=== PATIENT | male | born 1955 | race Caucasian/White ===

== ENCOUNTER → 2016-09-24 | Outpatient (CLI) | payer OTHER ==
--- NOTE | 2016-09-24 19:06 | DX ---
3 views left fifth digit Reason for examination: Post reduction follow-up; no prior studies are available for comparison. Findings: The bone alignment is anatomic. No fracture is seen. Soft tissues are unremarkable. Inciden tally, there is a focal sclerotic area at the distal end of the proximal phalanx of the left fourth d igit which is probably a benign bone island. Impression: Anatomic alignment following reduction with no fracture seen.
== END ==
LOC: BMCIMAGING 18:40
PROVIDERS: ATTEND Family Medicine
DX: S69.92XA Unspecified injury of left wrist, hand and finger(s), initial encounter (principal); W00.0XXA Fall on same level due to ice and snow, initial encounter

== ENCOUNTER 2018-02-26 07:15 | Inpatient (IN) | payer OTHER ==
[2018-03-01] MEDS ORDERED: ROPIVACAINE 0.2% 80 MG, EPINEPHrine 0.2 MG, morphINE 10 MG in SYRINGE 0 ML IU ONE (06:00)
[2018-03-01] MEDS ORDERED: LIDOCAINE 1% 2 ML INJ ONE (06:03)
[2018-03-01] MEDS ORDERED: DEXAMETHASONE 4 MG/ML VIAL IVP ONE (06:12)
[2018-03-01] MEDS ORDERED: ceFAZolin 2 GM/DEXTROSE 100 ML IV ONE (06:12)
[2018-03-01] MEDS ORDERED: FAMOTIDINE 20 MG TAB PO ONE (06:12)
[2018-03-01] MEDS ORDERED: ACETAMINOPHEN 325 MG TAB PO ONE (06:12)
[2018-03-01] MEDS ORDERED: LIDOCAINE 1% 2 ML INJ ID PRN (06:13)
[2018-03-01] MEDS ORDERED: LR 1,000 ML IV ONE (06:31)
[2018-03-01] MEDS ORDERED: CALCIUM CHLORIDE 1 GM/10 ML INJ ONE (06:33)
[2018-03-01] MEDS ORDERED: ceFAZolin 1 GM/5 ML SYR ONE (06:33)
[2018-03-01] MEDS ORDERED: THROMBIN (BOVINE) 5,000 UNIT VIAL TP ONE (06:33)
[2018-03-01] MEDS ORDERED: MIDAZOLAM 2 MG/2 ML VIAL IVP ONE (06:43)
--- NOTE | 2018-03-01 06:56 | PDANEPAE ---
ANE History of Present Illness R TKA ANE Past Medical History - Cardiovascular History Hx Hypertension: No Hx Arrhythmias: No Hx Chest Pain: No Hx Coronary Artery / Peripheral Vascular Disease: No Hx CHF / Valvular Disease: No Hx Palpitations: No Cardiovascular History Comment: PE 11/2015 - Pulmonary History Hx COPD: No Hx Asthma/Reactive Airway Disease: No Hx Recent Upper Respiratory Infection: No Hx Oxygen in Use at Home: No Hx Sleep Apnea: No Sleep Apnea Screening Result - Last Documented: Negative - Neurologic History Hx Cerebrovascular Accident: No Hx Seizures: No Hx Dementia: No - Endocrine History Hx Diabetes: No - Renal History Hx Renal Disorders: No - Liver History Hx Hepatic Disorders: No - Neurological & Psychiatric Hx Hx Neurological and Psychiatric Disorders: Yes Neurological / Psychiatric History Comment: BIPOLAR. PREV SUICIDE ATTEMPT - Cancer History Hx Cancer: No - Congenital Disorder History Hx Congenital Disorders: No - GI History Hx Gastrointestinal Disorders: No Gastrointestinal History Comment: CONSTIPATION - Other Health History Other Health History: LE DVT 2015. RT FOOT NEUROPATHY/NUMBNESS. DDD CERVICAL/ LUMBAR. OSTEOARTHRITIS - Chronic Pain History Chronic Pain: Yes (DDD,RT KNEE) - Surgical History Prior Surgeries: NONE ANE Review of Systems Review of systems is: negative Review of Systems: - Exercise capacity METS (RN): 4 METS ANE Patient History - Allergies Allergies/Adverse Reactions: bee stings Allergy (Mild, Uncoded 01/25/16 15:57) localized reaction - Home Medications Home medications: home medication list seen and reviewed Home Medications: Ascorbic Acid [Vitamin C 500 mg (*)] 500 mg PO DAILY@07/28/16 [Last Taken 10/11] Atorvastatin Calcium [Lipitor 40 mg (*)] 40 mg PO HS 07/28/16 [Last Taken ] Gabapentin [Neurontin 300 MG (*)] 900 mg PO BID@07/28/16 [Last Taken 03/01] Herbals/Supplements -Info Only 1 ea PO DAILY 07/28/16 [Last Taken Unknown] Magnesium Oxide [Magnesium Oxide 400 mg (*)] 400 mg PO HS 07/28/16 [Last Taken 02/22/18] Multivitamins [Multivitamin (*)] 1 each PO DAILY 07/28/16 [Last Taken 02/22/18] [place]-3 Fatty Acids [Fish Oil 1000 mg (*)] 3,000 mg PO BID@07/28/16 [Last Taken 02/22/18] lamoTRIgine [LamICTAL 100 MG (*)] 300 mg PO DAILY 07/28/16 [Last Taken 03/01/18] Escitalopram Oxalate [Lexapro] 15 mg PO Q2D 02/11/18 [Last Taken 03/01/18] Escitalopram Oxalate [Lexapro] 20 mg PO Q2D 02/11/18 [Last Taken Unknown] Gabapentin [Neurontin 300 MG (*)] 600 mg PO DAILY@02/11/18 [Last Taken ] [place] Carbonate [[place] Carbonate Tab 300 mg (*)] 1,200 mg PO HS 02/11/18 [ Last Taken 03/01/18] [place]-3 Fatty Acids [Fish Oil 1000 mg (*)] 2,000 mg PO DAILY@02/11/18 [Last Taken 02/22/18] QUEtiapine FUMARATE [Seroquel 25 mg (*)] 25 mg PO DAILY PRN 02/11/18 [Last Taken 02/28/18] QUEtiapine FUMARATE [Seroquel 300mg (*)] 300 mg PO HS 02/11/18 [Last Taken 02/28] Miralax 17 gm (*) DAILY 02/18/18 [Last Taken 02/25/18] - NPO status NPO Status: no food or drink >8 hours NPO Since - Liquids (Date): 02/28/18 NPO Since - Liquids (Time): 20:30 NPO Since - Solids (Date): 02/28/18 NPO Since - Solids (Time): 20:30 - Anes Hx Anes Hx: no prior problems - Smoking Hx Smoking Status: Former smoker - Family Anes Hx Family Anes Hx: none Family Hx Anesthesia Complications: NEG ANE Labs/Vital Signs - Vital Signs Vital Signs: reviewed preoperatively; see RN documention for details Blood Pressure: 102/75 Heart Rate: 65 Respiratory Rate: 20 O2 Sat (%): 94 Height: 177.8 cm Weight: 63.503 kg ANE Physical Exam - Airway Neck exam: FROM Mallampati Score: Class 2 Mouth exam: normal dental/mouth exam - Pulmonary Pulmonary: no respiratory distress - Cardiovascular Cardiovascular: regular rate and rhythym - ASA Status ASA Status: II ANE Anesthesia Plan Anesthesia Plan: spinal
--- NOTE | 2018-03-01 07:05 | PDHPUP ---
History & Physical Update H&P update statement: This history and physical update is based on an assessment of the patient which was completed after admission or registration (within 24 hours), but prior to the surgery/procedure. H&P update: H&P reviewed & patient examined, no change in patient's condition since H&P completed
[2018-03-01] MEDS ORDERED: LIDOCAINE 2% 100 MG/5 ML SYR ONE (07:15)
[2018-03-01] MEDS ORDERED: PROPOFOL/EMULSION 500 MG/50 ML BOTTLE IV ONE (07:15)
[2018-03-01] MEDS ORDERED: fentaNYL 100 MCG/2 ML INJ ONE ×2 (08:04→10:34)
[2018-03-01] MEDS ORDERED: HYDROmorphONE/DILAUDID 2 MG/ML INJ ONE (08:04)
[2018-03-01] MEDS ORDERED: PHENYLEPHRINE HCL 100 MCG/ML SYR ONE (08:18)
[2018-03-01] MEDS ORDERED: ACETAMINOPHEN 500 MG TAB PO PRN (08:29)
[2018-03-01] MEDS ORDERED: MEPERIDINE 25 MG/0.5 ML AMP IVP PRN (08:29)
[2018-03-01] MEDS ORDERED: oxyCODONE IR 5 MG TAB PO PRN (08:29)
[2018-03-01] MEDS ORDERED: NALOXONE HCL 0.4 MG/ML INJ IVP PRN (08:29)
[2018-03-01] MEDS ORDERED: PROMETHAZINE HCL 25 MG/ML INJ IVP PRN ×2 (08:29→10:26)
[2018-03-01] MEDS ORDERED: HYDROCODONE/APAP 5/325 TAB PO PRN (08:29)
[2018-03-01] MEDS ORDERED: DEXAMETHASONE 4 MG/ML VIAL IVP PRN (08:29)
[2018-03-01] MEDS ORDERED: HYDROmorphONE/DILAUDID 1 MG/ML INJ IVP PRN (08:29)
--- NOTE | 2018-03-01 08:32 | POSTANESTH ---
Post Anesthetic Evaluation Cardiovascular Status: Normal, Stable, Similar to Pre-Op Cond Respiratory Status: Normal, Stable, Similar to Pre-op Cond. Level of Consciousness/Mental Status: Can Participate in Eval, Moderately Sleepy Pain Control: Adequate, Prn Tx Ordered Nausea/Vomiting Control: Adequate, Prn Tx Ordered Complications Possibly Related to Anesthesia: None Noted
[2018-03-01] MEDS ORDERED: DEXAMETHASONE 4 MG/ML VIAL ONE (10:11)
[2018-03-01] MEDS ORDERED: BISACODYL 10 MG SUPP PR PRN (10:26)
[2018-03-01] MEDS ORDERED: diphenhydrAMINE 25 MG CAP PO PRN (10:26)
[2018-03-01] MEDS ORDERED: DIPHENOXYLATE/ATROPINE LOMOTIL 1 TAB PO PRN (10:26)
[2018-03-01] MEDS ORDERED: PROMETHAZINE HCL 25 MG SUPPR PR PRN (10:26)
[2018-03-01] MEDS ORDERED: MAGNESIUM HYDROXIDE 30 ML UDCUP PO PRN (10:26)
[2018-03-01] MEDS ORDERED: LACTULOSE 20 GM/30 ML UDCUP PO PRN (10:26)
[2018-03-01] MEDS ORDERED: LR 1,000 ML IV SCH (10:30)
[2018-03-01] MEDS ORDERED: QUEtiapine FUMARATE 25 MG TAB PO PRN (10:32)
[2018-03-01] MEDS: fentaNYL 100 MCG/2 ML INJ IVP PRN ×3 (10:37→11:05)
--- NOTE | 2018-03-01 10:38 | POSTOPPROG ---
Post Op Note Date of Operation: 03/01/18 Surgeon: Enid Belcher Md Pediatric Allergist: Concepcion Del Cid PA-C Anesthesiologist: Dr. Acharya Anesthesia: GET(General Endotracheal), Spinal Pre-op Diagnosis: right knee osteoarthritis Post-op Diagnosis: right knee osteoarthritis Indication: right knee pain Procedure: right TKA Inf/Abcess present in the surg proc area at time of surgery?: No EBL: Minimal Complications: none
--- NOTE | 2018-03-01 10:40 | SOAPPROG ---
SOAP Progress Note Assessment/Plan: Assessment/Plan: 63y/o male s/p right TKA - stable and doing well - patient with bipolar disorder and history of suicide attempt; lives alone; will require inpatient status and rehab to ensure post-operative safety - orders as written - xrays pending - PT/OT - Xarelto start POD#2; TEDs/SCDs - call with any issues or concerns 03/01/18 10:38 Subjective: Mild pain Objective: Vital Signs Temp Pulse Resp BP Pulse Ox 36.0 C 65 20 102/75 94 03/01/18 10:07 03/01/18 06:58 03/01/18 06:58 03/01/18 06:58 03/01/18 06:58 NAD, waking from anesthesia EOMi, face symmetric no distress incision clean, dressed ICD10 Worksheet Patient Problems: Problems Problem Status Onset Altered mental status Acute Attempted suicide Acute Overdose Acute Suicidal ideation Acute
--- NOTE | 2018-03-01 10:53 | GOP ---
[f rep st] OPERATIVE REPORT DATE OF OPERATION: 03/01/2018 SURGEON: Enid Belcher MD ENDOCRINOLOGY PHYSICIAN: CARRIE Rucker. ANESTHESIA: Spinal with sedation. PREOPERATIVE DIAGNOSIS: Severe osteoarthritis, right knee. POSTOPERATIVE DIAGNOSIS: Severe osteoarthritis, right knee. PROCEDURE PERFORMED: Right total knee arthroplasty. FINDINGS: Preoperative x-rays of the patient's right knee demonstrated severe osteoarthritis most pr onounced in the medial compartment. The patient did have tricompartmental involvement. At the time of surgery this finding was confirmed. There was marked osteophyte formation around the periphery of the joint and loss of the articular cartilage. A cemented Alvarez [employer] Nephew Journey II total knee ar throplasty were performed. A size 5 right femoral component was cemented into place and a size 5 tib ial base plate was also cemented into place. A 10 mm thick cross-linked polyethylene insert was plac ed in the metal backing of the tibia. The knee was taken through range of motion and achieved full e xtension and 135 degrees of flexion on the table. The patient was stable to varus and valgus stressi ng both in extension and flexion. A 35 mm round patellar button was also cemented on the patella and tracked well throughout the range of motion. ESTIMATED BLOOD LOSS: Less than 100 cc. DESCRIPTION OF PROCEDURE: The patient was taken to the operating room, placed in supine position on the operating table. Following placement of a spinal block and induction of adequate sedation the kn ee and leg were prepped and draped in the usual sterile manner. The patient received 2 g of IV Ancef . The leg was elevated and exsanguinated and the tourniquet inflated to 275 mmHg. The [facility] leg h older was used throughout the procedure for positioning. A midline incision was made extending from 2 fingerbreadths above the superior pole of the patella distally to the tibial tubercle. Incision wa s carried down through the subcutaneous tissue to the retinaculum of the knee. A medial parapatellar arthrotomy was then performed and the patella was everted laterally. The thickness of the patella w as measured and then a 9 mm cut was taken from the posterior surface of the patella. A protector marcy te was placed on the cut surface and the patella was placed in the lateral gutter. The knee was flex ed up and the distal femoral drill was utilized to open up the medullary canal of the femur. Intrame dullary referencing was utilized for the distal femoral cut. The distal femoral cutting block was po sitioned and pinned and then a +2 cut was taken from the distal femur. The femoral cutting block was removed and then the 9 mm thick lollipop was used to giovany the tibia for later referencing on the tib ial cut. The knee was flexed up and the femur was sized. A size 5 femoral component was felt to be the best fit so the size 5 cutting block was placed on the distal femur and pinned. The anterior pos terior and chamfer cuts were made. The notch was then cleared with the reamer followed by the box os teotome. Our attention was then turned to the tibia. Appropriate soft tissue releases were performe d to pull the tibia anteriorly and then again intramedullary referencing was utilized for the tibial cut. A drill hole was placed in the midline of the tibial plateaus and then the intramedullary guide was inserted and positioned and pinned. The tibial cut was made. The knee was brought into extensi on and the lollipop was inserted and the patient achieved full extension with a 9 mm thick lollipop i n place. The lamina chartered financial analyst was used to remove the meniscus and to release the posterior capsule. The knee was then flexed up and the tibia was sized. A size 5 tibial component was pinned into place and then the femoral component was placed on the distal femur and the 9, 10 and 11 mm thick polyethy lenes were trialed. The best fit was with a 10 mm trial. The patella was then prepared as well. Dr ill holes were placed in the posterior surface of the patella. The keel punch was passed and then al l the trial components were removed and the bony surfaces were thoroughly irrigated and dried. The c ement was mixed. The components were opened and implanted. All excess cement was removed from aroun d the edges of the components using a [place] elevator. The knee was brought into extension with the 1 [address]. It was held while the cement hardened. Once the cement was hard, the knee was flexed back up and the trial polyethylene was removed and the polyethylene insert was op ened and inserted. Prior to inserting the polyethylene the posterior capsule was injected with 20 cc of joint cocktail. The remaining 20 cc was injected in the extensor mechanism. Once the polyethyle ne was then placed the knee was taken through a range of motion and motion and stability were excelle nt. The wound was irrigated out and the retinaculum of the knee was closed using #2 FiberWire in a f [id number] fashion. The subcutaneous tissues were closed using 2-0 Vicryl and the skin was close d using steve. Platelet gel was used in the deep and superficial portions of the wound to enhance wound healing. The patient tolerated the procedure well. There were no complications. Estimated bl ood loss minimal. Final sponge, needle counts were correct. The patient was transported to the [facility] very room in good condition. /[id number]/MODL
--- NOTE | 2018-03-01 12:32 | PDMN ---
Medical Necessity Medical necessity: Pt meets IP criteria per PA; est los >2 mn s/p R TKA; pt unsafe to dc home alone-hx bipolar disorder, anxiety & depression w/suicide attempt; admit for safety, further monitoring, therapies & CM consult for dc planning; per progress note & order 03/01/18
--- NOTE | 2018-03-01 12:43 | ASMTCMCOM ---
CM Note CM Note Notes: Patient is POD #0 R TKA. His surgeon would like him to go to SNF rehab. Patient lives alone in an apartment managed by [facility]. It's a ground floor apartment. Prior to surgery, patient visited [facility] and spoke with [facility]. He's amenable to going to either. Referals have been sent, and Case Management will follow. Date Signed: 03/01/2018 12:43 PM Electronically Signed By:Leticia Feliz RN
[2018-03-01] MEDS: ceFAZolin 2 GM/DEXTROSE 100 ML IV SCH ×2 (15:00→23:13)
[2018-03-01] MEDS: ACETAMINOPHEN 325 MG TAB PO SCH ×3 (15:39→23:15)
[2018-03-01] MEDS: ASCORBIC ACID 500 MG TAB PO SCH (15:41)
[2018-03-01] MEDS: GABAPENTIN 300 MG CAP PO SCH ×2 (15:42→20:38)
[2018-03-01] MEDS: CYCLOBENZAPRINE 10 MG TAB PO PRN (15:50)
[2018-03-01] MEDS ORDERED: NS 500 ML IV ONE (16:00)
--- NOTE | 2018-03-01 16:10 | ASMTLACE ---
SANNA Acuity / Level of Answers: Yes Care: Did the patient have an inpatient admission? Comorbidities - select Answers: Opioid dependence all that apply / Chronic pain Other Notes: Hx of PE # of Emergency department Answers: 0 visits in the last 6 months Social determinants Answers: Mental health diagnosis (anxiety, depression, pers onality disorders, etc.) Score: 11 Date Signed: 03/01/2018 04:10 PM Electronically Signed By:Deysi Wise
[2018-03-01] MEDS: oxyCODONE IR 5 MG TAB PO PRN ×2 (18:39→23:18)
[2018-03-01] MEDS: ATORVASTATIN CALCIUM 40 MG TAB PO SCH (20:38)
[2018-03-01] MEDS: MAGNESIUM OXIDE 400 MG TAB PO SCH (20:38)
[2018-03-01] MEDS: LITHIUM CARBONATE 300 MG TAB PO SCH (20:39)
[2018-03-01] MEDS: SENNOSIDES/DOCUSATE SODIUM TAB PO SCH (20:39)
[2018-03-01] MEDS: QUEtiapine FUMARATE 300 MG TAB PO SCH (23:15)
[2018-03-02] MEDS: CYCLOBENZAPRINE 10 MG TAB PO PRN ×2 (01:58→16:33)
[2018-03-02] MEDS: ACETAMINOPHEN 325 MG TAB PO SCH ×4 (04:59→22:56)
[2018-03-02] MEDS: oxyCODONE IR 5 MG TAB PO PRN ×2 (05:00→08:01)
[2018-03-02] MEDS: lamoTRIgine 100 MG TAB PO SCH (08:10)
[2018-03-02] MEDS: SENNOSIDES/DOCUSATE SODIUM TAB PO SCH ×2 (08:10→20:56)
[2018-03-02] MEDS: FERROUS SULFATE 140 MG TAB.ER PO SCH (08:11)
[2018-03-02] MEDS: ESCITALOPRAM OXALATE 10 MG TAB PO SCH (08:11)
[2018-03-02] MEDS: GABAPENTIN 300 MG CAP PO SCH ×3 (08:11→20:55)
[2018-03-02] MEDS: MULTIVITAMINS 1 EACH TAB PO SCH (08:12)
[2018-03-02] MEDS ORDERED: POLYETHYLENE GLYCOL 3350 17 GM PKT PO SCH (09:00)
[2018-03-02] MEDS ORDERED: oxyCODONE IR 5 MG TAB PO PRN (11:43)
[2018-03-02] MEDS: ASCORBIC ACID 500 MG TAB PO SCH (11:55)
[2018-03-02] MEDS ORDERED: NS 500 ML IV ONE (12:30)
--- NOTE | 2018-03-02 13:55 | SOAPPROG ---
SOAP Progress Note Assessment/Plan: Assessment/Plan: 63y/o male s/p right TKA, POD#1 - having some issues with pain control. currently 6/10. unable to take NSAIDs given patient's need for [place] and interaction with drug metabolism/potential for [place] toxicity. Oxycodone approved by patient's Psychiatrist. Reached out to Psychiatrist earlier today to discuss changing to Dilaudid. No interaction seen with Dilaudid + [place]. Discussed with patient who reports Psychiatrist did not seem particularly concerned about him taking narcotics. Will trial 2- 4mg of Dilaudid to see if this helps with pain control. Patient on continuous pulse ox - hypotension, 500NS bolus. suspect multifactorial including narcotic related. Continue to monitor closely. - patient with bipolar disorder and history of suicide attempt; lives alone; will require inpatient status and rehab to ensure post-operative safety - xrays show stable hardware - PT/OT - Xarelto starts POD#2; TEDs/SCDs - continue inpatient care - call with any issues or concerns 03/02/18 13:51 Subjective: Pain currently /. Eating drinking. No BM yet. Doesn't feel Oxycodone is helping with pain at all. Objective: Vital Signs Temp Pulse Resp BP Pulse Ox 36.9 C 98 18 105/69 90 L 03/02/18 11:43 03/02/18 11:43 03/02/18 11:43 03/02/18 12:05 03/02/18 11:43 Laboratory Results 03/02/18 04:35 03/01/18 03/02/18 03/03/18 05:59 05:59 05:59 Intake Total 0257 Output Total 4217 1579 Balance 1062 -1575 NAD, well appearing, no distress EOMi, face symmetric right knee extension 5 flexion 80 incision CDI, trace bleeding at superior portion of incision dressing changed ICD10 Worksheet Patient Problems: Problems Problem Status Onset Altered mental status Acute Attempted suicide Acute Overdose Acute Suicidal ideation Acute
[2018-03-02] MEDS: HYDROmorphONE/DILAUDID 2 MG TAB PO PRN ×2 (14:17→21:12)
[2018-03-02] MEDS: ATORVASTATIN CALCIUM 40 MG TAB PO SCH (20:55)
[2018-03-02] MEDS: LITHIUM CARBONATE 300 MG TAB PO SCH (20:56)
[2018-03-02] MEDS: MAGNESIUM OXIDE 400 MG TAB PO SCH (20:56)
[2018-03-02] MEDS: POLYETHYLENE GLYCOL 3350 17 GM PKT PO SCH (20:57)
[2018-03-02] MEDS: QUEtiapine FUMARATE 300 MG TAB PO SCH (22:57)
[2018-03-03] MEDS: ACETAMINOPHEN 325 MG TAB PO SCH ×3 (05:07→18:27)
[2018-03-03] MEDS ORDERED: ESCITALOPRAM OXALATE 10 MG TAB PO SCH (09:00)
[2018-03-03] MEDS: FERROUS SULFATE 140 MG TAB.ER PO SCH (09:55)
[2018-03-03] MEDS: lamoTRIgine 100 MG TAB PO SCH (10:22)
[2018-03-03] MEDS: MULTIVITAMINS 1 EACH TAB PO SCH (10:22)
[2018-03-03] MEDS: GABAPENTIN 300 MG CAP PO SCH ×3 (10:23→20:35)
[2018-03-03] MEDS: RIVAROXABAN 10 MG TAB PO SCH (10:23)
[2018-03-03] MEDS: SENNOSIDES/DOCUSATE SODIUM TAB PO SCH ×2 (10:23→20:34)
[2018-03-03] MEDS: POLYETHYLENE GLYCOL 3350 17 GM PKT PO SCH ×2 (10:24→20:34)
[2018-03-03] MEDS: HYDROmorphONE/DILAUDID 2 MG TAB PO PRN ×2 (10:28→18:35)
[2018-03-03] MEDS: ASCORBIC ACID 500 MG TAB PO SCH (12:37)
--- NOTE | 2018-03-03 15:02 | ASMTCMCOM ---
CM Note CM Note Notes: Pt accepted at both [facility] and [facility], pt chooses [facility]. D/c plan of care: [facility] when medically stable. Date Signed: 03/03/2018 03:01 PM Electronically Signed By:MARTY Byrne
--- NOTE | 2018-03-03 15:24 | SOAPPROG ---
SOAP Progress Note Assessment/Plan: Assessment/Plan: 63y/o male s/p right TKA, POD#2 - having some issues with pain control. unable to take NSAIDs given patient's need for [place] and interaction with drug metabolism/potential for [place] toxicity. Continue with Dilaudid prn. Continuous pulse ox - monitor for any further hypotension. - patient with bipolar disorder and history of suicide attempt; lives alone; will require inpatient status and rehab to ensure post-operative safety - xrays show stable hardware - PT/OT - Xarelto starts today; TEDs/SCDs - continue inpatient care - call with any issues or concerns Patient seen and examined at approximately 8am by Dr. Belcher solely. Document per her exam and assessment 03/03/18 15:23 03/03/18 15:24 Subjective: Improving overall Objective: Vital Signs Temp Pulse Resp BP Pulse Ox 37.2 C 99 16 121/75 H 97 03/03/18 11:54 03/03/18 11:54 03/03/18 11:54 03/03/18 11:54 03/03/18 11:54 Laboratory Results 03/03/18 04:40 03/02/18 03/03/18 03/04/18 05:59 05:59 05:59 Intake Total 3137 1100 1500 Output Total 4945 3975 Balance 1062 -2875 1500 NAD, well appearing, no distress EOMi, face symmetric incision clean, dressed neurovascularly grossly intact ICD10 Worksheet Patient Problems: Problems Problem Status Onset Altered mental status Acute Attempted suicide Acute Overdose Acute Suicidal ideation Acute
[2018-03-03] MEDS: ATORVASTATIN CALCIUM 40 MG TAB PO SCH (20:34)
[2018-03-03] MEDS: MAGNESIUM OXIDE 400 MG TAB PO SCH (20:36)
[2018-03-03] MEDS: LITHIUM CARBONATE 300 MG TAB PO SCH (20:36)
[2018-03-03] MEDS: QUEtiapine FUMARATE 300 MG TAB PO SCH (22:21)
[2018-03-04] MEDS: ACETAMINOPHEN 325 MG TAB PO SCH ×3 (00:39→12:41)
[2018-03-04 07:37] VITALS: BP 100/63
[2018-03-04] MEDS: POLYETHYLENE GLYCOL 3350 17 GM PKT PO SCH (09:55)
[2018-03-04] MEDS: SENNOSIDES/DOCUSATE SODIUM TAB PO SCH (09:55)
[2018-03-04] MEDS: ESCITALOPRAM OXALATE 10 MG TAB PO SCH (09:56)
[2018-03-04] MEDS: GABAPENTIN 300 MG CAP PO SCH ×2 (09:56→12:41)
[2018-03-04] MEDS: lamoTRIgine 100 MG TAB PO SCH (09:56)
[2018-03-04] MEDS: RIVAROXABAN 10 MG TAB PO SCH (09:56)
[2018-03-04] MEDS: FERROUS SULFATE 140 MG TAB.ER PO SCH (09:56)
[2018-03-04] MEDS: MULTIVITAMINS 1 EACH TAB PO SCH (09:57)
--- NOTE | 2018-03-04 10:51 | SOAPPROG ---
SOAP Progress Note Assessment/Plan: Assessment/Plan: 63y/o male s/p right TKA, POD#3 - pain relatively well managed on dilaudid. patient feeling a bit "loopy" and declined dilaudid this morning. unable to take NSAIDs given patient's need for [place] and interaction with drug metabolism/potential for [place] toxicity. Continue with Dilaudid prn. - patient with bipolar disorder and history of suicide attempt; lives alone; requires rehab to ensure post-operative safety and ongoing recovery - PT/OT - Xarelto x 12 days total; TEDs/SCDs - dc to rehab today - call with any issues or concerns; follow-up in clinic on 03/1503/04/18 10:48 Subjective: Pain better managed with Dilaudid. Feeling a bit loopy from the medication but otherwise well. Objective: Vital Signs Temp Pulse Resp BP Pulse Ox 36.7 C 86 16 100/63 98 03/04/18 07:36 03/04/18 07:36 03/04/18 07:36 03/04/18 07:36 03/04/18 07:36 Laboratory Results 03/03/18 04:40 03/03/18 03/04/18 03/05/18 05:59 05:59 05:59 Intake Total 1100 1650 400 Output Total 3975 Balance -2875 1650 400 NAD, no distress EOMi, face symmetric, cake decorator strength equal left knee extension 0, flexion 70 incision CDI, no erythema or active drainage new dressing placed neurovascularly grossly intact ICD10 Worksheet Patient Problems: Problems Problem Status Onset Altered mental status Acute Attempted suicide Acute Overdose Acute Suicidal ideation Acute
--- NOTE | 2018-03-04 11:05 | PDIAF ---
- Diagnosis Code Status: Full Code - Medication Management Discharge Medications: Medications to Continue on Transfer Ascorbic Acid [Vitamin C 500 mg (*)] 500 mg PO DAILY@07/28/16 [Last Taken 10/11] Atorvastatin Calcium [Lipitor 40 mg (*)] 40 mg PO HS 07/28/16 [Last Taken ] Gabapentin [Neurontin 300 MG (*)] 900 mg PO BID@07/28/16 [Last Taken 03/01] Herbals/Supplements -Info Only 1 ea PO DAILY 07/28/16 [Last Taken Unknown] Magnesium Oxide [Magnesium Oxide 400 mg (*)] 400 mg PO HS 07/28/16 [Last Taken 02/22/18] Multivitamins [Multivitamin (*)] 1 each PO DAILY 07/28/16 [Last Taken 02/22/18] [place]-3 Fatty Acids [Fish Oil 1000 mg (*)] 3,000 mg PO BID@07/28/16 [Last Taken 02/22/18] lamoTRIgine [LamICTAL 100 MG (*)] 300 mg PO DAILY 07/28/16 [Last Taken 03/01/18] Escitalopram Oxalate [Lexapro 10 MG] 15 mg PO Q2D 02/11/18 [Last Taken 03/01/18] Escitalopram Oxalate [Lexapro] 20 mg PO Q2D 02/11/18 [Last Taken Unknown] Gabapentin [Neurontin 300 MG (*)] 600 mg PO DAILY@12 02/11/18 [Last Taken ] [place] Carbonate [[place] Carbonate Tab 300 mg (*)] 1,200 mg PO HS 02/11/18 [ Last Taken 03/01/18] [place]-3 Fatty Acids [Fish Oil 1000 mg (*)] 2,000 mg PO DAILY@12 02/11/18 [Last Taken 02/22/18] QUEtiapine FUMARATE [Seroquel 25 mg (*)] 25 mg PO DAILY PRN 02/11/18 [Last Taken 02/28/18] QUEtiapine FUMARATE [Seroquel 300mg (*)] 300 mg PO HS 02/11/18 [Last Taken 02/28] Acetaminophen [Tylenol 325mg (*)] 650 mg PO Q6HRS tab 03/04/18 [Last Taken Unknown] Ferrous Sulfate [Slow Fe 140 MG (*)] 140 mg PO DAILY tab.er 03/04/18 [Last Taken Unknown] HYDROmorphone HCL [Dilaudid 2 mg (*)] 2 - 4 mg PO Q3 PRN tab 03/04/18 [Last Taken Unknown] Polyethylene Glycol 3350 [Miralax 17 gm (*)] 17 gm PO BID pkt 03/04/18 [Last Taken Unknown] Rivaroxaban [Xarelto 10mg (*)] 10 mg PO DAILY #9 tab 03/04/18 [Last Taken Unknown] Additional Medication Instructions: Xarelto another 10 days post-operatively ( for a total of 12 days) for DVT prevention then may discontinue and initiate 81mg ASA. Wean off Dilaudid as tolerated Discharge Medications: Refer to the Discharge Home Medication list for PRN reason. PICC Care - Routine: N/A - Orders Services needed: Registered Nurse, Physical Therapy, Occupational Therapy Isolation Type: None Diet Recommendation: no restrictions on diet Diet Texture: Regular Texture Diet Wound Care Instructions: keep incision clean and dry; do not change dressing unless becomes saturated Activity/Weight Bearing Restrictions: WBAT, no knee flexion beyond 90 degrees Additional Instructions: - WBAT - no knee flexion beyond 90 degrees - Xarelto 10mg for a total of 12 days post-operatively then may discontinue and initiate 81mg ASA. Patient has received 2 doses in hospital - follow-up on 03/15 - keep incision clean and dry - patient cannot have NSAIDs due to [place] requirement - Follow Up Care Current Providers and Referrals: Etta Hanson MD [Primary Care Provider] -
[2018-03-04] MEDS: ASCORBIC ACID 500 MG TAB PO SCH (12:41)
--- NOTE | 2018-03-04 12:58 | ASMTCMCOM ---
CM Note CM Note Notes: Pt medically stable for d/c to [facility]. Orders sent in [employer]. RHODA Brown called report. Evelia with [facility] scheduled wc transport. Date Signed: 03/04/2018 12:57 PM Electronically Signed By:MARTY Byrne
--- NOTE | 2018-03-04 14:48 | ASDISCHSUM ---
Discharge Information Plan Status:SNF Medically Cleared to Leave: Discharge Date:03/04/2018 12:58 PM D/C Disposition:[facility] Facility ADT D/C Disposition:Other Rehab, Not [facility] Projected Discharge Date:03/04/2018 11:00 AM Transportation at D/C:Wheelchair Van Discharge Delay Reason: Follow-Up Date:03/04/2018 11:00 AM Discharge Slot: Final Diagnosis: Placement Information Referral Type:*Detention/SNF Referral ID:-[id number] Provider Name:[facility] Address 1:[address] Address 2: City:[place] Selection Factors: State:[place] Patient Contact Information Contact Name:JARRED Relationship:Friend Address: Work Phone: City: [facility] Phone: [facility] Code: Email: Financial Information Financial Class:Medicare Primary Plan Desc:MEDICARE INPATIENT Primary Plan Number:[id number] Secondary Plan Desc:[facility] Secondary Plan Number:[id number] Assessment Information [facility] CM Progress Note CM Note CM Note Notes: Patient is POD #0 R TKA. His surgeon would like him to go to SNF rehab. Patient lives alone in an apartment managed by [employer] [facility] [employer]. It's a ground floor apartment. Prior to surgery, patient visited [facility] and spoke with [facility]. He's amenable to going to either. Referals have been sent, and Case Management will follow. Date Signed: 03/01/2018 12:43 PM Electronically Signed By:Leticia Feliz RN LACE LACE Acuity / Level of Answers: Yes Care: Did the patient have an inpatient admission? Comorbidities - select Answers: Opioid dependence all that apply / Chronic pain Other Notes: Hx of PE # of Emergency department Answers: 0 visits in the last 6 months Social determinants Answers: Mental health diagnosis (anxiety, depression, pers onality disorders, etc.) Score: 11 Date Signed: 03/01/2018 04:10 PM Electronically Signed By:Deysi Wise [facility] CM Progress Note CM Note CM Note Notes: Pt accepted at both [facility] and [facility], pt chooses [facility]. D/c plan of care: [facility] when medically stable. Date Signed: 03/03/2018 03:01 PM Electronically Signed By:MARTY Byrne [facility] CM Progress Note CM Note CM Note Notes: Pt medically stable for d/c to [facility]. Orders sent in [employer]. RHODA Brown called report. Evelia with [facility] scheduled wc transport. Date Signed: 03/04/2018 12:57 PM Electronically Signed By:MARTY Byrne Intervention Information Intervention Type:*Incorrect Registration Date of Service:03/01/2018 12:41 PM Patient Type:Inpatient Staff Member:RHODA Nielsen Courtney Hours: Discipline: Severity: Comment: Intervention Type:*IM-Signed Date of Service:03/04/2018 12:07 PM Patient Type:Inpatient Staff Member:Deysi Wise Hours: Discipline: Severity: Comment:
--- NOTE | 2018-03-15 14:02 | GDS ---
[f rep st] DISCHARGE SUMMARY ADMISSION DIAGNOSES: Right knee osteoarthritis, bipolar disorder. DISCHARGE DIAGNOSIS: Right knee osteoarthritis, bipolar disorder. HOSPITAL COURSE: The patient is a pleasant 63-year-old gentleman who is well known to our service fo r ongoing right knee pain. Imaging studies showed severe osteoarthritis, and after careful decision- making and discussion, as well as failure of nonoperative management, the patient elected to proceed forth with a right total knee arthroplasty. The surgery was done by Dr. Enid Belcher, and the pat ient tolerated well without complication. Surgery was completed on March 01, 2018. The patient was tr ansferred to the PACU after the procedure was complete. When PACU criteria was met, the patient was transferred to the floor. He worked with Physical Therapy and Occupational Therapy and continued to improve. He did struggle a bit with postoperative pain management. However, this improved with time . He is unable to take NSAIDs due to his lithium use, and thus, his pain was managed with alternativ e therapies. His psychiatric medications were continued, and he had no issues with his psychiatric d iagnoses during his hospital stay. On March 04, 2018, he was in good and stable condition and ready f or discharge to rehab facility. He was given strict instruction to follow up on March 15, 2018, and anny estrada did so. All of his questions were answered prior to discharge home. Return precautions were discu ssed as well. /[id number]/MODL
== END 2018-03-04 12:58 | DRG 470 ==
LOC: F3N 03-01 05:50 → OBSVTOIN 03-01 10:31 → F3N 03-01 11:44
PROVIDERS: ADMIT Orthopaedic Surgery; ATTEND Orthopaedic Surgery
PROC: 0SRC0J9 Replacement of Right Knee Joint with Synthetic Substitute, Cemented, Open Approach (ICD-10-PCS; principal; 2018-03-01 07:15)
DX: M17.11 Unilateral primary osteoarthritis, right knee (principal); F31.9 Bipolar disorder, unspecified; E78.00 Pure hypercholesterolemia, unspecified
CPT/HCPCS: 97110-GP; 97116-GP; 97161-GP; 97165-GO; 97530-GP; 97535-GO; C1713; G8978-GP-CK; G8979-GP-CI; G8987-GO-CK; G8988-GO-CI; J0171; J0690; J1100; J1170; J2001; J2250; J2270; J2370; J2704; J2795; J3010

== ENCOUNTER → 2018-05-24 | Outpatient (CLI) | payer OTHER | LOC: BHFA 15:30 | PROVIDERS: ATTEND Internal Medicine Cardiovascular Disease | DX: I73.9 Peripheral vascular disease, unspecified (principal) ==

== ENCOUNTER 2018-06-10 18:59 | Observation (INO) | payer OTHER ==
[2018-06-10] MEDS ORDERED: NS 1,000 ML IV ONE (19:41)
--- NOTE | 2018-06-10 19:46 | EDPHY ---
HPI/HX/ROS/PE/MDM Narrative: CHIEF COMPLAINT: "Double vision since 9:30 this morning" HISTORY OF PRESENT ILLNESS: This patient is a healthy 63 year old male complaining of diplopia onset this morning around 9:30, 10 hours prior to arrival. He describes a double image below and to the right of the main image. This is apparent in both eyes but more noticeable in the left. The patient denies any trouble speaking, thinking, or holding objects. He endorses history of peripheral neuropathy but denies any new numbness, weakness, or paresthesias in extremities. His friend suggested he go to the hospital for evaluation around 3pm today. He first went to an gse mechanic at [facility]. After this evaluation, he was referred to ED to rule out stroke or other acute processes. He has noted some flashes of light in his upper right field of vision in the right eye only. He denies any recent head trauma. He has had consistent pain in left calf but believes this is referred from his left knee, and he is scheduled for left TKA. He denies missing any doses of his regular medications. No fever, chills, chest pain, shortness of breath, palpitations, vomiting, diarrhea, urinary complaints, headache, lightheadedness. REVIEW OF SYSTEMS: A comprehensive 10 system review of systems is otherwise negative aside from elements mentioned in the history of present illness and medical decision making. PAST MEDICAL HISTORY: Bipolar ([place]). Right TKA 3 months ago. History of PE, not currently anticoagulated. SOCIAL HISTORY: Friend at bedside. Lives in [place]. Does not abuse tobacco, drugs, or alcohol. VITAL SIGNS: Reviewed by me GENERAL: Well-developed, well-nourished, leading to the right on the stretcher with his head slightly at an angle. HEENT: Atraumatic. PERRL, EOMI. Eyes: No icterus, no injection. Mouth: moist mucous membranes. No erythema or lesions. Neck: supple with no adenopathy. LUNGS: Clear to auscultation bilaterally, no wheezes, rhonchi or rales. CARDIAC: Regular rate and rhythm, no rubs, murmurs or gallops. ABDOMEN: Soft, nontender, nondistended, bowel sounds normal. BACK: No CVA tenderness. EXTREMITIES: No trauma. No edema. Range of motion is normal throughout. NEURO: Alert and oriented x3. Visual garcia are normal in confrontation. Extraocular movements appear intact on my examination. Patient has a very slight asymmetry of the face with a slightly down turned left side of the mouth. Motor strength 5/5. Sensation intact to light touch throughout. No slurred speech. Fluid speech. No word-finding difficulty. SKIN: Warm and dry, no rash. PSYCHIATRIC: Normal mentation, no agitation. Portions of this note were transcribed by a medical office technology instructor. I personally performed a history, physical exam, medical decision making, and confirmed accuracy of information the transcribed note. ED Course: 63 y/o male presents with diplopia onset this morning around 9:30am. He is well- appearing on exam but continues to complain of diplopia. IV was placed in the patient had an EKG. He will be evaluated for an acute stroke. 20:[address] Vernon, radiologist. CT head normal. 20:[address] Flanagan, neurologist at [facility]. Given the questionable facial asymmetry CT angiograms will be ordered to rule out any large vessel occlusion. Of these are negative, recommend admission to the hospital for MRI, further cardiac monitoring, and anti platelet therapy. 21:34 Reassessed. Patient feels like his diplopia has maybe resolved somewhat, but does persist. Discussed admission for further workup including neurology consult. He is amenable to this. 21:[address] Vernon, radiologist. CTA head and neck are negative for acute processes. 22:11 Consulted with hospitalist service. Dr. Mccormack accepts admission for diplopia and stroke/TIA workup. MDM: Differential diagnoses the patient's presenting complaints was considered including but not limited to intracranial injury, TIA, ischemic cerebrovascular accident, hemorrhagic cerebrovascular accident, hypoglycemia, complex migraine , metastases, tumor, seizure, or electrolyte abnormality - Data Points Imaging Results: Imaging Impressions Head CT 06/10/18 19:42 Impression: Normal noncontrast study. Results called to Dr. Wray at 8:22 PM General information for patients regarding this examination can be found at [email or web address]. If you have questions or comments about this report, please contact me at [phone] (hospital) or [phone] (cell). Head CTA 06/10/18 20:47 Impression: Normal CT angiogram of the brain. 2. CT Angiography of the Neck (With Contrast), 21:08 Clinical Indications: Acute diplopia, facial asymmetry, possible stroke, dissection or aneurysm Technique: During IV administration of 75 mL of Isovue-370 intravenously, helical multidetector data acquisition was obtained from the upper thorax cephalad through the skull base. The thinly collimated data were manipulated in multiple projections on the 3D computer workstation by the radiologist. Dose reduction techniques were utilized. Findings: Both common carotid arteries, carotid bifurcations and internal carotid arteries are widely patent. Both vertebral arteries are symmetric and widely patent to the basilar artery. No evidence of occlusion, hemodynamically significant stenosis, dissection or ulceration. Impression: Normal. Results discussed with Dr. Wray at 9:41 PM. Note: All stenoses are calculated using NASCET Criteria. General information for patients regarding this examination can be found at [employer]. If you have questions or comments about this report, please contact me at (hospital) or [phone] (cell). Neck CTA 06/10/18 20:47 Impression: Normal CT angiogram of the brain. 2. CT Angiography of the Neck (With Contrast), 21:08 Clinical Indications: Acute diplopia, facial asymmetry, possible stroke, dissection or aneurysm Technique: During IV administration of 75 mL of Isovue-370 intravenously, helical multidetector data acquisition was obtained from the upper thorax cephalad through the skull base. The thinly collimated data were manipulated in multiple projections on the 3D computer workstation by the radiologist. Dose reduction techniques were utilized. Findings: Both common carotid arteries, carotid bifurcations and internal carotid arteries are widely patent. Both vertebral arteries are symmetric and widely patent to the basilar artery. No evidence of occlusion, hemodynamically significant stenosis, dissection or ulceration. Impression: Normal. Results discussed with Dr. Wray at 9:41 PM. Note: All stenoses are calculated using NASCET Criteria. General information for patients regarding this examination can be found at [employer]. If you have questions or comments about this report, please contact me at (hospital) or [phone] (cell). Imaging: Discussed imaging studies w/ reflector driller and deburrer Radiologist Laboratory Results: Laboratory Results 06/10/18 20:00 06/10/18 20:00 06/10/18 06/10/18 06/10/18 20:04 20:00 20:00 WBC RBC Hgb Hct MCV MCH MCHC RDW Plt Count MPV Neut % (Auto) Lymph % (Auto) Cassia % (Auto) Eos % (Auto) Baso % (Auto) Nucleat RBC Rel Count Absolute Neuts (auto) Absolute Lymphs (auto) Absolute Monos (auto) Absolute Eos (auto) Absolute Basos (auto) Absolute Nucleated RBC Immature Gran % Immature Gran # PT 12.8 SEC SEC (12.0-15.0) INR 0.94 (0.83-1.16) Sodium 139 mEq/L mEq/L (135-145) Potassium 4.6 mEq/L mEq/L (3.3-5.0) Chloride 102 mEq/L mEq/L (97-110) Carbon Dioxide 32 mEq/l H mEq/l (22-31) Anion Gap 5 mEq/L L mEq/L (6-14) BUN 17 mg/dL mg/dL (7-23) Creatinine 1.0 mg/dL mg/dL (0.7-1.3) Estimated GFR > 60 Glucose 108 mg/dL H mg/dL (70-100) Calcium 10.4 mg/dL mg/dL (8.5-10.4) POC Troponin I 0.01 ng/mL ng/mL (0.00-0.08) [place] 0.8 mEq/L mEq/L (0.6-1.2) 06/10/18 20:00 WBC 6.79 10^3/uL 10^3/uL (3.80-9.50) RBC 4.65 10^6/uL 10^6/uL (4.40-6.38) Hgb 13.5 g/dL L g/dL (13.7-17.5) Hct 43.7 % % (40.0-51.0) MCV 94.0 fL fL (81.5-99.8) MCH 29.0 pg pg (27.9-34.1) MCHC 30.9 g/dL L g/dL (32.4-36.7) RDW 14.5 % % (11.5-15.2) Plt Count 258 10^3/uL 10^3/uL (150-400) MPV 9.1 fL fL (8.7-11.7) Neut % (Auto) 62.8 % % (39.3-74.2) Lymph % (Auto) 25.3 % % (15.0-45.0) Cassia % (Auto) 8.1 % % (4.5-13.0) Eos % (Auto) 3.1 % % (0.6-7.6) Baso % (Auto) 0.4 % % (0.3-1.7) Nucleat RBC Rel Count 0.0 % % (0.0-0.2) Absolute Neuts (auto) 4.26 10^3/uL 10^3/uL (1.70-6.50) Absolute Lymphs (auto) 1.72 10^3/uL 10^3/uL (1.00-3.00) Absolute Monos (auto) 0.55 10^3/uL 10^3/uL (0.30-0.80) Absolute Eos (auto) 0.21 10^3/uL 10^3/uL (0.03-0.40) Absolute Basos (auto) 0.03 10^3/uL 10^3/uL (0.02-0.10) Absolute Nucleated RBC 0.00 10^3/uL 10^3/uL (0-0.01) Immature Gran % 0.3 % % (0.0-1.1) Immature Gran # 0.02 10^3/uL 10^3/uL (0.00-0.10) PT INR Sodium Potassium Chloride Carbon Dioxide Anion Gap BUN Creatinine Estimated GFR Glucose Calcium POC Troponin I [place] Medications Given: Discontinued Medications Sodium Chloride (Ns) 1,000 mls @ 500 mls/hr IV EDNOW ONE PRN Reason: Protocol Stop: 06/10/18 21:40 Last Admin: 06/10/18 19:59 Dose: 1,000 mls Point of Care Test Results: Chemistry 06/10/18 20:04 POC Troponin I 0.01 ng/mL ng/mL (0.00-0.08) General Time Seen by Provider: 06/10/18 19:26 Initial Vital Signs: Initial Vital Signs Temperature (C) 36.7 C 06/10/18 19:08 Heart Rate 85 06/10/18 19:08 Respiratory Rate 18 06/10/18 19:08 Blood Pressure 115/74 06/10/18 19:08 O2 Sat (%) 94 06/10/18 19:08 O2 Delivery Mode Room Air Allergies/Adverse Reactions: bee stings Allergy (Mild, Uncoded 06/10/18 19:10) localized reaction Home Medications: Medication Instructions Recorded Ascorbic Acid [Vitamin C 500 mg 500 mg PO DAILY@12 07/28/16 (*)] Atorvastatin Calcium [Lipitor 40 40 mg PO HS 07/28/16 mg (*)] Gabapentin [Neurontin 300 MG (*)] 900 mg PO BID@07/28/16 Herbals/Supplements -Info Only 1 ea PO DAILY 07/28/16 Magnesium Oxide [Magnesium Oxide 400 mg PO HS 07/28/16 400 mg (*)] Multivitamins [Multivitamin (*)] 1 each PO DAILY 07/28/16 [place]-3 Fatty Acids [Fish Oil 1000 3,000 mg PO BID@07/28/16 mg (*)] lamoTRIgine [LamICTAL 100 MG (*)] 300 mg PO DAILY 07/28/16 Escitalopram Oxalate [Lexapro 10 15 mg PO Q2D 02/11/18 MG] Escitalopram Oxalate [Lexapro] 20 mg PO Q2D 02/11/18 Gabapentin [Neurontin 300 MG (*)] 600 mg PO DAILY@12 02/11/18 [place] Carbonate [[place] 1,200 mg PO HS 02/11/18 Carbonate Tab 300 mg (*)] [place]-3 Fatty Acids [Fish Oil 1000 2,000 mg PO DAILY@02/11/18 mg (*)] QUEtiapine FUMARATE [Seroquel 25 25 mg PO DAILY PRN 02/11/18 mg (*)] QUEtiapine FUMARATE [Seroquel 300 mg PO HS 02/11/18 300mg (*)] Acetaminophen [Tylenol 325mg (*)] 650 mg PO Q6HRS tab 03/04/18 Ferrous Sulfate [Slow Fe 140 MG 140 mg PO DAILY tab.er 03/04/18 (*)] HYDROmorphone HCL [Dilaudid 2 mg 2 - 4 mg PO Q3 PRN tab 03/04/18 (*)] Polyethylene Glycol 3350 [Miralax 17 gm PO BID pkt 03/04/18 17 gm (*)] Rivaroxaban [Xarelto 10mg (*)] 10 mg PO DAILY #9 tab 03/04/18 Departure - Departure Disposition: [facility] Inpatient Acute Clinical Impression: Diplopia, r/o stroke Condition: Fair Report Scribed for: Aurea Wray Report Scribed by: Shahnaz Tran Date of Report: 06/10/18 Time of Report: 22:54
[2018-06-10 20:10] LABS: PLATELET COUNT 258 10^3/uL (150-400)
[2018-06-10 20:18] LABS: INR 0.94 (0.83-1.16); PROTIME(PATIENT) 12.8 SEC (12.0-15.0)
[2018-06-10] MEDS ORDERED: IOPAMIDOL (ISOVUE 370) 100 ML BTL IV ONE (21:03)
[2018-06-10] MEDS ORDERED: LORazepam 0.5 MG TAB PO PRN (22:32)
[2018-06-10] MEDS ORDERED: PROMETHAZINE HCL 25 MG/ML INJ IVP PRN (22:32)
[2018-06-10] MEDS ORDERED: ONDANSETRON DISINTEGRATING 4 MG TAB PO PRN (22:32)
[2018-06-10] MEDS ORDERED: ONDANSETRON 4 MG/2 ML VIAL IVP PRN (22:32)
[2018-06-10] MEDS ORDERED: ACETAMINOPHEN 325 MG TAB PO PRN (22:32)
[2018-06-11] MEDS ORDERED: lamoTRIgine 25 MG TAB PO ONE (00:34)
[2018-06-11] MEDS ORDERED: QUEtiapine FUMARATE 300 MG TAB PO ONE (00:34)
[2018-06-11] MEDS ORDERED: GABAPENTIN 300 MG CAP PO ONE (00:35)
[2018-06-11] MEDS ORDERED: ATORVASTATIN CALCIUM 40 MG TAB PO ONE (00:36)
[2018-06-11] MEDS ORDERED: lamoTRIgine 100 MG TAB PO ONE (01:00)
--- NOTE | 2018-06-11 02:40 | PDGENHP ---
History and Physical - Chief Complaint Double vision - History of Present Illness Workup in initial patient visit completed on 06/10/18 prior to midnight. Source-patient provides history appears reliable. EMR was reviewed and case discussed with ED provider. HPI - is a pleasant 63-year-old gentleman with past medical history significant for bipolar disorder, HLD, remote history of PE, peripheral neuropathy, degenerative joint disease in both knees who presents emergency department today with complaints of diplopia. Patient's symptoms started earlier this morning approximately 9:00 a.m. He did not seek any follow-up until approximately 3:00 p.m. Patient reported some right lower outer upper quadrant diplopia left greater than right. He also reported some flashes of light in the right upper field on the right eye only. Patient went to be evaluated by his counter dish carrier. He was diagnosed with a cranial nerve 4 palsy and referred to the ED for further evaluation of his symptoms. Patient reports a longstanding history of right lower extremity neuropathy. He also endorses ongoing symptoms in the left leg on more recently he feels has secondary to severe degenerative joint disease in the left knee which is due to undergo TKA in a few weeks in June. He reports referred calf pain but denies any calf swelling or tightness. Patient denies any chest pain, palpitations, shortness of breath. He denies any dysphagia, drooling, facial drooping or focal weakness. Patient reports that this time his symptoms are almost nearly resolved entirely. Patient is on numerous medications for his bipolar disorder as well as neuropathy. He denies any new changes in medications or dosing. History Information - Allergies/Home Medication List Allergies/Adverse Reactions: bee stings Allergy (Mild, Uncoded 06/10/18 19:10) localized reaction Home Medications: Ascorbic Acid [Vitamin C 500 mg (*)] 500 mg PO DAILY@12 07/28/16 [Last Taken 10/11] Atorvastatin Calcium [Lipitor 40 mg (*)] 40 mg PO HS 07/28/16 [Last Taken ] Gabapentin [Neurontin 300 MG (*)] 900 mg PO BID@07/28/16 [Last Taken 03/01] Herbals/Supplements -Info Only 1 ea PO DAILY 07/28/16 [Last Taken Unknown] Magnesium Oxide [Magnesium Oxide 400 mg (*)] 400 mg PO HS 07/28/16 [Last Taken 02/22/18] Multivitamins [Multivitamin (*)] 1 each PO DAILY 07/28/16 [Last Taken 02/22/18] Assumption-3 Fatty Acids [Fish Oil 1000 mg (*)] 3,000 mg PO BID@07/28/16 [Last Taken 02/22/18] lamoTRIgine [LamICTAL 100 MG (*)] 300 mg PO DAILY 07/28/16 [Last Taken 03/01/18] Escitalopram Oxalate [Lexapro 10 MG] 15 mg PO Q2D 02/11/18 [Last Taken 03/01/18] Escitalopram Oxalate [Lexapro] 20 mg PO Q2D 02/11/18 [Last Taken Unknown] Gabapentin [Neurontin 300 MG (*)] 600 mg PO DAILY@02/11/18 [Last Taken ] Artas Carbonate [Artas Carbonate Tab 300 mg (*)] 1,200 mg PO HS 02/11/18 [ Last Taken 03/01/18] Assumption-3 Fatty Acids [Fish Oil 1000 mg (*)] 2,000 mg PO DAILY@12 02/11/18 [Last Taken 02/22/18] QUEtiapine FUMARATE [Seroquel 25 mg (*)] 25 mg PO DAILY PRN 02/11/18 [Last Taken 02/28/18] QUEtiapine FUMARATE [Seroquel 300mg (*)] 300 mg PO HS 02/11/18 [Last Taken 02/28] I have personally reviewed and updated: family history, medical history, social history, surgical history - Past Medical History Additional medical history: Bipolar disorder, HLD, history of PE, history of peripheral neuropathy in the right lower extremity, degenerative joint disease in the knees, history of suicide attempt. - Surgical History Additional surgical history: Right TKA 02/2018 - Family History Additional family history: Mother with history CAD in her latter 70s. She is . No family history of stroke, seizures, neurologic conditions. - Social History Smoking Status: Former smoker Alcohol Use: None Drug Use: Marijuana (Patient reports that he did try some edible marijuana for pain control but did not like the way he felt and so has discontinued.) Additional social history: Patient lives in [place]. Cor status-full. Review of Systems Review of Systems: ROS: 10pt was reviewed & negative except for what was stated in HPI & below EENMT: Reports: double vision (See HPI). Denies: eye pain, tearing Neurological: Reports: numbness, tingling (Right greater than left lower extremity.) Physical Exam Physical Exam: Selected Entries 06/10/18 19:08 Blood Pressure Automatic Method Heart Rate 85 Respiratory 18 Rate O2 Sat (%) 94 Temperature (C) 36.7 C Blood Pressure 115/74 Mean Arterial 87 Pressure (MAP) O2 Delivery Room Air Mode Temperature Oral Source Temp Pulse Resp BP Pulse Ox 36.7 C 63 16 94/63 L 90 L 06/11/18 02:00 06/11/18 02:00 06/11/18 02:00 06/11/18 02:00 06/11/18 02:00 Constitutional: no apparent distress, other (NAD. Pleasant adult gentleman lays quietly in bed trying to sleep but wakes easily to name..) Eyes: PERRL, anicteric sclera, EOMI, other (Patient with of very minimal horizontal nystagmus to the right. ), No scleral injection Ears, Nose, Mouth, Throat: moist mucous membranes, poor dentition Cardiovascular: regular rate and rhythym, no murmur, rub, or gallop, pulses symmetric bilaterally, No edema Peripheral Pulses: 1+: dorsalis-pedis (R), dorsalis-pedis (L) Respiratory: no respiratory distress, no rales or rhonchi, clear to auscultation , No inspiratory crackles, No respiratory distress Gastrointestinal: normoactive bowel sounds, soft, non-tender abdomen, no palpable masses, No distension Genitourinary: no bladder tenderness, No arteaga in urethra Skin: warm, normal color, no rashes or abrasions Musculoskeletal: pain with ROM (Left lower extremity), other (Patient with some subtle weakness left greater than right in the upper and lower extremity. Patient reports this is chronic in the left lower extremity due to his degenerative joint disease and in his upper extremities due to all the wires and monitors.) Neurologic: AAOx3, weakness (Left lower extremity compared to the right quite subtle), CN II-XII Intact, No sensation intact bilaterally, No facial droop Psychiatric: interacting appropriately, not anxious, not encephalopathic, thought process linear, other (Patient pleasant and cooperative.), No anxious, No depressed, No agitated, No poor insight, No poor judgement, No poor memory Lab Data & Imaging Review 06/10/18 20:00 06/10/18 20:00 WBC 6.79 10^3/uL (3.80-9.50) 06/10/18 20:00 RBC 4.65 10^6/uL (4.40-6.38) 06/10/18 20:00 Hgb 13.5 g/dL (13.7-17.5) L 06/10/18 20:00 Hct 43.7 % (40.0-51.0) 06/10/18 20:00 MCV 94.0 fL (81.5-99.8) 06/10/18 20:00 MCH 29.0 pg (27.9-34.1) 06/10/18 20:00 MCHC 30.9 g/dL (32.4-36.7) L 06/10/18 20:00 RDW 14.5 % (11.5-15.2) 06/10/18 20:00 Plt Count 258 10^3/uL (150-400) 06/10/18 20:00 MPV 9.1 fL (8.7-11.7) 06/10/18 20:00 Neut % (Auto) 62.8 % (39.3-74.2) 06/10/18 20:00 Lymph % (Auto) 25.3 % (15.0-45.0) 06/10/18 20:00 [place] % (Auto) 8.1 % (4.5-13.0) 06/10/18 20:00 Eos % (Auto) 3.1 % (0.6-7.6) 06/10/18 20:00 Baso % (Auto) 0.4 % (0.3-1.7) 06/10/18 20:00 Nucleat RBC Rel Count 0.0 % (0.0-0.2) 06/10/18 20:00 Absolute Neuts (auto) 4.26 10^3/uL (1.70-6.50) 06/10/18 20:00 Absolute Lymphs (auto) 1.72 10^3/uL (1.00-3.00) 06/10/18 20:00 Absolute Monos (auto) 0.55 10^3/uL (0.30-0.80) 06/10/18 20:00 Absolute Eos (auto) 0.21 10^3/uL (0.03-0.40) 06/10/18 20:00 Absolute Basos (auto) 0.03 10^3/uL (0.02-0.10) 06/10/18 20:00 Absolute Nucleated RBC 0.00 10^3/uL (0-0.01) 06/10/18 20:00 Immature Gran % 0.3 % (0.0-1.1) 06/10/18 20:00 Immature Gran # 0.02 10^3/uL (0.00-0.10) 06/10/18 20:00 PT 12.8 SEC (12.0-15.0) 06/10/18 20:00 INR 0.94 (0.83-1.16) 06/10/18 20:00 Sodium 139 mEq/L (135-145) 06/10/18 20:00 Potassium 4.6 mEq/L (3.3-5.0) 06/10/18 20:00 Chloride 102 mEq/L (97-110) 06/10/18 20:00 Carbon Dioxide 32 mEq/l (22-31) H 06/10/18 20:00 Anion Gap 5 mEq/L (6-14) L 06/10/18 20:00 BUN 17 mg/dL (7-23) 06/10/18 20:00 Creatinine 1.0 mg/dL (0.7-1.3) 06/10/18 20:00 Estimated GFR > 60 06/10/18 20:00 Glucose 108 mg/dL (70-100) H 06/10/18 20:00 Calcium 10.4 mg/dL (8.5-10.4) 06/10/18 20:00 POC Troponin I 0.01 ng/mL (0.00-0.08) 06/10/18 20:04 Artas 0.8 mEq/L (0.6-1.2) 06/10/18 20:00 Imaging Review: CT Head Without Contrast, 8:00 PM History: Acute diplopia since this morning, 4th nerve palsy wording to counter dish carrier. Technique: Noncontrast images through the head. Soft tissue and bone window evaluation is performed. Sagittal and coronal reconstructions are obtained and reviewed. Dose reduction techniques were utilized. . Findings: There is no evidence for hemorrhage, mass lesion, acute infarction, intracranial edema, hydrocephalus or abnormal intracranial calcification. No subarachnoid, subdural or epidural blood is identified. There is no midline shift. The ambient cistern is patent. Bone window evaluation reveals normally aerated paranasal and mastoid sinuses and both middle ears. There is no evidence of pneumocephalus.No depressed or basilar skull fracture is identified. Impression: Normal noncontrast study. Results called to Dr. Wray at 8:22 PM General information for patients regarding this examination can be found at [email or web address]. If you have questions or comments about this report, please contact me at [phone] (hospital) or [phone] (cell). Dictated By: Dominic Vernon MD 1. CT Angiogram of the Brain, 21:08 Clinical Indications: Acute diplopia, facial asymmetry. 4th nerve palsy, R29.818 Neurological changes strongly suggesting intracerebral aneurysm. Possible stroke. Technique: CT angiogram of the brain was performed with the uneventful intravenous administration of 75 mL Isovue-370 contrast. Multiplanar reconstructions including 3D reconstructions performed and evaluated on My [employer] G[employer] workstation in order to better evaluate the [place] vessels. Images were manipulated by the radiologist at the computer workstation. Dose reduction techniques were utilized. Findings: Major vessels of the [place] of [place] are adequately displayed, demonstrating no evidence of aneurysm, vascular malformation, flow-limiting stenosis, or occlusion. Bilateral cavernous internal carotid arteries and vertebrobasilar system demonstrate no evidence of flow- limiting stenosis, aneurysm, occlusion or dissection. Superior sagittal sinus, transverse sinuses, and major veins demonstrate no evidence of intraluminal thrombi. The basilar tip is normal. Neither posterior communicating artery is identified. The distal internal carotid arteries, M1, M2 and middle cerebral trifurcations look normal. The A1, 8 2 and anterior cerebral arteries look normal. No anterior communicating artery is identified. The origins of the ophthalmic arteries look normal. Impression: Normal CT angiogram of the brain. 2. CT Angiography of the Neck (With Contrast), 21:08 Clinical Indications: Acute diplopia, facial asymmetry, possible stroke, dissection or aneurysm Technique: During IV administration of 75 mL of Isovue-370 intravenously, helical multidetector data acquisition was obtained from the upper thorax cephalad through the skull base. The thinly collimated data were manipulated in multiple projections on the 3D computer workstation by the radiologist. Dose reduction techniques were utilized. Findings: Both common carotid arteries, carotid bifurcations and internal carotid arteries are widely patent. Both vertebral arteries are symmetric and widely patent to the basilar artery. No evidence of occlusion, hemodynamically significant stenosis, dissection or ulceration. Impression: Normal. Results discussed with Dr. Wray at 9:41 PM. Note: All stenoses are calculated using NASCET Criteria. General information for patients regarding this examination can be found at [email or web address]. If you have questions or comments about this report, please contact me at (hospital) or [phone] (cell). Dictated By: Dominic Vernon MD MRI of the Brain (Without Contrast) History: new diplopia today, 4th nerve palsy. Technique: T1-weighted images were acquired axially and sagittally from the foramen magnum to the vertex. Axial fast inversion recovery, fast T2-weighted, GRE and diffusion- weighted axial images were obtained without contrast. Findings: Diffusion-weighted sequence demonstrates no acute infarct. The ventricles, cisterns, and sulci are normal without atrophy, hydrocephalus, midline shift, herniation, or epidural/subdural hematomas. No intracranial hemorrhage or masses. Cerebellar tonsils are in normal position. Pituitary gland , optic chiasm and suprasellar cistern are normal. The occipital lobes and optic tracts are normal. Normal signal flow-void in the superior sagittal sinus, basilar artery, and bilateral internal carotid arteries indicating patency. Paranasal sinuses and mastoid air cells are clear. Impression: Normal. Dictated By: Dominic Vernon MD EKG additional interpertation: tele NSR 70s. Assessment & Plan Assessment: Pleasant 63-year-old gentleman with history of bipolar disorder, HLD , degenerative joint disease in the knee who presents emergency department today with complaints of new onset diplopia #Diplopia (Acute) - patient reports improvement has symptoms and that are nearly resolved. In the emergency department there was concern for possible facial asymmetry which I do not appreciate at this time. Patient does note a little bit of weakness on the left lower extremity which is not new for him. Patient admitted for further evaluation and potential neurologic etiology of his symptoms. CT head, CTA head and neck, MRI of the brain were all negative for any acute findings. Echocardiogram is ordered in the morning with bubble to complete evaluation for potential TIA. Non tPA stroke protocol ordered. Therapy services evaluation ordered for tomorrow as well as Neurology consultation. Patient declined any aspirin or other NSAIDs reporting that this interferes with his lithium. patient is not currently on any anticoagulation and reports he completed his Xarelto 3 weeks postoperatively for his right total knee arthroplasty. He has a remote history of PE and last took his Coumadin 2 years ago after 4 months of therapy. Chronic medical issues # bipolar disorder - single order for patient's evening medications including Seroquel, and Lamictal. Resume his lithium in the morning as per day team once the med list is available for reconciliation. # HLD - continue patient's Lipitor when med rec is available will order 1 time dose tonight. Check lipid panel. # degenerative joint disease of the knee - supportive care. Tylenol p.r.n.. Gabapentin at HS. # history of PE remotely - patient just recently completed course of Xarelto for post-operative anticoagulation. He is not chronically on prophylactic therapy. His PE occurred several years ago and he completed 4 months of anticoagulation with Coumadin at that time. FEN - cardiac diet. Saline lock IV. Electrolyte monitoring replacement if needed. PPX - SCDs patient reports he does not tolerate due to his neuropathy. Anticipate short hospital stay and will encourage mobilization. Patient medium risk but will hold anticoagulation anticipating patient will discharged tomorrow. COR - full Disposition-patient admitted observation status on medical floor for continued neurologic monitoring and further evaluation as noted above.
[2018-06-11 11:11] VITALS: BP 116/83
--- NOTE | 2018-06-11 12:17 | NEUROPROG ---
Assessment: HOSPITAL NEUROLOGY CONSULT REQUESTING: Rosaura Mccormack MD REASON: diplopia HPI: 63 year old man with a history of bipolar, HLD, remote PE, peripheral neuropathy presented to the ED with diplopia. He states he woke in his usual state of health and around [id number] had sudden onset of binocular diplopia. He states covering an eye made it go away. Was worst when looking down and to the right. No weakness, sensory changes, speech/language disturbance, vision loss, gait change, vertigo, hearing loss, tinnitus, neck pain, BOOGIE, scalp tenderness, jaw claudication, fatigability. No history of head injuries. No prior stroke/TIA history. No eye pain/painful eye movements. States the diplopia resolved around 2200 last night. Had MRI brain wo and CTA head/neck while symptomatic which were normal. Saw an eye specialists yesterday afternoon who told him he might have a 4th nerve palsy and they directed him to the ED (no records of this encounter available). States he had one episode of diplopia years ago related to medication side effect with one of his psych meds. ROS: As per the HPI, otherwise a complete 12 point ROS was performed and is negative ALLERGIES AND MEDS: As recorded in the EMR - reviewed and reconciled PFSH: As per the intake H&P by Dr. Mccormack from yesterday EXAM: VS reviewed in EMR GEN: WDWN laying in NAD HEENT: NCAT, sclera anicteric, conjunctiva not injected, MMM, oropharynx clear, no scalp tenderness NECK: supple, nontender, no meningismus CV: RRR s1 s2 wo m/r/c/g. Carotid pulses 2+ wo bruit NEURO: MS: awake, alert, oriented to all spheres. Speech nondysarthric. No language disturbance. Follows commands. Attends to both sides. Recent/remote memory grossly intact. Mood euthymic. Good fund of knowledge. CN: pupils 3mm round and reactive. Unable to visualize fundi. VFF. Primary gaze centered. Full ocular motility (no fatigability). No ptosis (including fatigable ptosis). Facial sensation preserved. Face symmetric. Hearing grossly intact to finger rub. Palatoglossal movements intact. Shoulder shrug and head turn strong. MOTOR: normal bulk/tone. No adventitial movements. Full power throughout. No fatigable weakness in arms/legs. SENSORY: symmetric LT/PP in extremities. No extinction. COORD: no ataxia FN/HS. Dennis preserved. REFLEX: plantars down. No clonus. Absent ankle jerks, other DTRS 2/4. GAIT: deferred to PT safety eval DATA REVIEW: Labs reviewed in EMR ESR 3 CRP > 5 TSH pending PERSONALLY INTERPRETED RESULTS AND DATA: MRI brain wo - normal CTA head/neck - normal IMPRESSION AND RECOMMENDATIONS: // DIPLOPIA - RESOLVED Patient with transient binocular diplopia. Semiology is consistent with 4th nerve palsy, but I don't detect any deficits on exam now and his symptoms have resolved. He has not fatigability with ocular movement - lower suspicion for MG. Could have been an ischemic phenomenon or idiopathic phenomenon. Inflammatory markers normal. Brain and vascular imaging normal, including visualized orbits. TSH is pending. He will need follow up with neuro- ophthalmology at [facility] for further evaluation. He takes a statin and has normal BP. He does not want to take antiplatelet due to concern of causing elevated lithium levels - advise he discuss starting ASA with psychiatrist until he has follow up with neuro-ophtho so they can monitor his lithium levels. If TSH returns normal then he can be discharged to follow up with neuro-ophtho ( otherwise would need to have thyroid addressed by primary team/PCP). Will sign off. Recall PRN. Objective: Vital Signs Temp Pulse Resp BP Pulse Ox 36.5 C 65 14 116/83 H 95 06/11/18 11:10 06/11/18 11:10 06/11/18 11:10 06/11/18 11:10 06/11/18 11:10 Laboratory Results 06/11/18 11:25 06/10/18 06/11/18 06/12/18 05:59 05:59 05:59 Intake Total 1150 Output Total 700 400 Balance 450 -400 PT 12.8 SEC (12.0-15.0) 06/10/18 20:00 INR 0.94 (0.83-1.16) 06/10/18 20:00 Allergies/Adverse Reactions: bee stings Allergy (Mild, Uncoded 06/10/18 19:10) localized reaction
--- NOTE | 2018-06-11 12:21 | ECHO ---
[email or web address] [address] [address] Main: [phone] Fax: Transthoracic Echocardiogram Name: JONES MARIE MR#: [id number] Study Date: 06/11/2018 Study Time: 08:03 AM Date of : 1955 Age: 63 year(s) Height: 177.8 cm (70 in.) Weight: 63.5 kg (140 lb.) BSA: 1.79 m2 Gender: Male Examination: Echo with Agitated Saline Indication: Ischemic Stroke Image Quality: Adequate Contrast: Requested by: Rosaura Mccormack BP: 93 mmHg/57 mmHg Heart Rate: Rhythm: Indication: Ischemic Stroke Procedure Staff Benzene Washer Operator: Kary Swenson RDCS Reading Physician: Armando Zabala MD Requesting Provider: Conclusions: Normal size left ventricle. EF is 61 %. No regional wall motion abnormality. Normal RV function. An agitated saline study was performed and was negative for intracardiac shunting. Mild mitral valve regurgitation is present. No mitral stenosis is present. The aortic valve is tri-leaflet. There is no significant aortic valve regurgitation. Mild to moderate tricuspid valve regurgitation. The pulmonary artery pressure is mildly increased. No obvious source of embolism seen. Measurements: Chambers Valvular Assessment AV/MV Valvular Assessment TV/PV Normal Normal Normal Name Value Range Name Value Range Name Value Range Ao Kalina (2D): 3.8 cm (1.4 cm-2.6 AV Vmax: 1.59 m/s (1 m/s-1.7 TR Vmax: 2.95 mm/s ( - ) cm) m/s) TR PGmax: 35 mmHg ( - ) IVSd (2D): 1.3 cm (0.6 cm-1.1 AV maxP mmHg ( - ) syst. PAP: 40 mmHg ( - ) cm) AV meanP mmHg ( - ) PV Vmax: 0.88 m/s (0.6 m/s-0.9 LVDd (2D): 4.1 cm (4.2 cm-5.9 MELLY (VTI): 2.8 cm ( - ) m/s) cm) MV E Vmax: 0.71 m/s ( - ) PV PGmax: 3 mmHg ( - ) LVDs (2D): 2.8 cm (2.1 cm-4 MV A Vmax: 0.61 m/s ( - ) cm) MV E/A: 1.16 ( - ) LVPWd (2D): 1.1 cm (0.6 cm-1 cm) MV PHT: 0.077 s ( - ) LVOTd 2.3 cm 2.3 cm mm MVA (PHT): 2.9 s ( - ) LVEF (BP): 61 % (>=55 %) RVDd(2D): 3.1 cm (1.9 cm-3.8 cmmm) Patient: JONES MARIE Study Date: 06/11/2018 Page 1 of 2 08:03 AM Continued Measurements: Chambers Valvular Assessment AV/MV Valvular Assessment TV/PV Name Value Name Value Name Value LADs: 3.1 cm MV DecTime: 282 m/s CVP (est.): 5 mmHg LADs Lon.4 cm MV E' Septal: 0.09 m/s LA Area: 17.6 cm2 MV E/E' Septal: 8.10 LA Volume: 48 ml MV E/E' Lateral: 7.70 LA Volume Index: 26.8 ml/m2 Additional Vessels Name Value Ao Ascendin.5 cm Findings: Left Ventricle: Normal size left ventricle. No LV hypertrophy. Normal global systolic LV function. EF is 61 %. No regional wall motion abnormality. Unable to assess diastolic dysfunction. Right Ventricle: Normal size right ventricle. Normal RV function. Left Atrium: The left atrium is normal in size. An agitated saline study was performed and was negative for intracardiac shunting. Right Atrium: The right atrium is normal in size. Mitral Valve: The mitral valve is normal in appearance and function. Mild mitral valve regurgitation is present. No mitral stenosis is present. Aortic Valve: The aortic valve is tri-leaflet. There is no significant aortic valve regurgitation. No aortic valve stenosis is present. Tricuspid Valve: The tricuspid valve is normal in appearance and function. Mild to moderate tricuspid valve regurgitation. The pulmonary artery pressure is mildly increased. Right ventricular systolic pressure measures 40mmHg. Pulmonic Valve: The pulmonic valve is normal in appearance and function. Trivial pulmonic valve regurgitation. Aorta: The aorta is normal. Normal size aortic root measuring 3.8 cm. Normal size ascending aorta measuring 3.5 cm. IVC: Subcostal not well visualized. Pericardium: No pericardial effusion. (No Signature Object) Patient: JONES MARIE Study Date: 06/11/2018 Page 2 of 2 08:03 AM [id number]
[2018-06-11] MEDS ORDERED: GABAPENTIN 300 MG CAP PO SCH ×2 (14:16→21:00)
[2018-06-11] MEDS ORDERED: QUEtiapine FUMARATE 25 MG TAB PO PRN (14:17)
[2018-06-11] MEDS ORDERED: lamoTRIgine 100 MG TAB PO SCH (14:30)
--- NOTE | 2018-06-11 14:47 | PDDCSUM ---
Discharge Summary Discharge Summary: DISCHARGE DIAGNOSES: *Episode of Transient Diplopia, resolved *Unable to rule out TIA as cause of above, but etiology uncertain *Bipolar disorder with ongoing treatment *Hypercholesterolemia *remote hx of CONSULTANTS: Dr. Husam Shane PROCEDURES: MRI brain Echocardiogram CT scan head CT angiogram of head neck HOSPITAL COURSE SUMMARY: This patient presented after abrupt onset of diplopia. There was apparently as well some possible eyelid droop. The patient was seen by an kosher dietary service manager who felt he had a 4th cranial nerve palsy. He was seen in the ER and assess for possible stroke. His symptoms and examination findings resolved spontaneously. He has complete resolution and a normal neurologic exam. MRI did not show any evidence of stroke mass bleed or otherwise. CT scan was otherwise unrevealing. CT angiogram head neck did not show significant vascular abnormalities. Echocardiogram showed mild pulmonary hypertension in this patient has a history of smoking but no other abnormalities of concern. The patient does have a history of hypercholesterolemia is on treatment for that. He does not taken anti-platelet medicine, and we talked with him about that. He is not willing at the moment to take this medicine without talking to his psychiatrist 1st over concerns about his lithium. He did not have elevated blood pressures here. He did not have any abnormal cardiac rhythms on heart monitor. There are no recurrent symptoms and no other neurologic symptoms. He has had no fevers. He is eating well up walking about with no dyspnea or angina type symptoms. The patient is felt stable for discharge to home PENDING TEST RESULTS: None MEDICATION CHANGES: A daily aspirin for preventive care was recommended the patient, though he is not willing to take that at this time because of concern that may affect his lithium. It is recommended that he follow up with his psychiatrist regarding assessing the clinical safety of taking a daily aspirin. FOLLOW-UP PLAN: With his psychiatrist in 1-2 weeks He will make an appointment at [facility] With his primary care physician in 1-2 weeks Greater than 35 minutes bedside and care coordination time today
--- NOTE | 2018-06-11 15:06 | ASMTLACE ---
SANNA Length of stay for Answers: 1 day current admission Acuity / Level of Answers: No Care: Did the patient have an inpatient admission? Comorbidities - select Answers: Opioid dependence all that apply / Chronic pain Other Notes: Hx of PE; HLD # of Emergency department Answers: 1-2 visits in the last 6 months Social determinants Answers: History of substance abuse (ETOH, street drugs, prescription drugs, etc.) Mental health diagnosis (anxiety, depression, pers onality disorders, etc.) Score: 13 Date Signed: 06/11/2018 03:05 PM Electronically Signed By:Mimi Parra RN
--- NOTE | 2018-06-11 15:08 | ASMTCMCOM ---
CM Note CM Note Notes: Spoke w/RN, pt admitted for diplopia. Patient was cleared by PT/OT/GOLF COURSE DESIGNER, anticipate he will dc home when medically stable. CM available for any changes. DC Plan: Independent Date Signed: 06/11/2018 03:07 PM Electronically Signed By:Mimi Parra RN
[2018-06-11] MEDS ORDERED: POLYETHYLENE GLYCOL 3350 17 GM PKT PO SCH (21:00)
[2018-06-11] MEDS ORDERED: ATORVASTATIN CALCIUM 40 MG TAB PO SCH (21:00)
[2018-06-11] MEDS ORDERED: MAGNESIUM OXIDE 400 MG TAB PO SCH (21:00)
[2018-06-11] MEDS ORDERED: QUEtiapine FUMARATE 300 MG TAB PO SCH (21:00)
[2018-06-11] MEDS ORDERED: LITHIUM CARBONATE 600 MG CAP PO SCH (21:00)
[2018-06-12] MEDS ORDERED: ESCITALOPRAM OXALATE 10 MG TAB PO SCH (09:00)
[2018-06-12] MEDS ORDERED: ASCORBIC ACID 500 MG TAB PO SCH (12:00)
[2018-06-12] MEDS ORDERED: OMEGA-3 FATTY ACIDS 1,000 MG CAP PO SCH (12:00)
[2018-06-12] MEDS ORDERED: MULTIVITAMINS 1 EACH TAB PO SCH (12:00)
== END 2018-06-11 15:50 | disposition home or self-care (01) ==
LOC: F3E 23:34
PROVIDERS: ADMIT Internal Medicine; ATTEND Internal Medicine
DX: H53.2 Diplopia (principal); G51.0 Bell's palsy; Z03.89 Encounter for observation for other suspected diseases and conditions ruled out; E78.00 Pure hypercholesterolemia, unspecified; M17.12 Unilateral primary osteoarthritis, left knee; F31.9 Bipolar disorder, unspecified; Z96.651 Presence of right artificial knee joint; Z86.711 Personal history of pulmonary embolism
CPT/HCPCS: 70450; 70496; 70498; 70551; 92523; 93306; 97116; 97161; 97165; G0378; G8978; G8979; G8980; G8987; G8988; G8989; G9165; G9166; G9167; Q9967; 84484-PO

== ENCOUNTER 2018-07-19 08:15 | Inpatient (IN) | payer OTHER ==
[2018-10-18] MEDS ORDERED: ceFAZolin 2 GM/DEXTROSE 100 ML IV ONE (06:00)
[2018-10-18] MEDS ORDERED: ROPIVACAINE 0.2% 80 MG, EPINEPHrine 0.2 MG, KETOROLAC TROMETHAMINE 30 MG in SYRINGE 0 ML IU ONE (06:00)
[2018-10-18] MEDS ORDERED: TRANEXAMIC ACID 3,000 MG in NS (SYRINGE) 50 ML IRR ONE (06:00)
[2018-10-18] MEDS ORDERED: FAMOTIDINE 20 MG TAB PO ONE (06:09)
[2018-10-18] MEDS ORDERED: ACETAMINOPHEN 325 MG TAB PO ONE (06:09)
[2018-10-18] MEDS ORDERED: LR 1,000 ML IV ONE (06:10)
[2018-10-18] MEDS ORDERED: CALCIUM CHLORIDE 1 GM/10 ML INJ ONE (06:38)
[2018-10-18] MEDS ORDERED: THROMBIN (BOVINE) 5,000 UNIT VIAL TP ONE (06:38)
[2018-10-18] MEDS ORDERED: ceFAZolin 1 GM/5 ML SYR ONE (06:39)
[2018-10-18] MEDS ORDERED: MIDAZOLAM 2 MG/2 ML VIAL IVP ONE (06:42)
[2018-10-18] MEDS ORDERED: PROPOFOL/EMULSION 500 MG/50 ML BOTTLE IV ONE (06:58)
--- NOTE | 2018-10-18 07:00 | PDANEPAE ---
ANE Past Medical History - Cardiovascular History Hx Hypertension: No Hx Arrhythmias: No Hx Chest Pain: No Hx Coronary Artery / Peripheral Vascular Disease: No Hx CHF / Valvular Disease: No Hx Palpitations: No Cardiovascular History Comment: PE 11/2015 - Pulmonary History Hx COPD: No Hx Asthma/Reactive Airway Disease: No Hx Recent Upper Respiratory Infection: No Hx Oxygen in Use at Home: No Hx Sleep Apnea: No Sleep Apnea Screening Result - Last Documented: Negative - Neurologic History Hx Cerebrovascular Accident: No Hx Seizures: No Hx Dementia: No - Endocrine History Hx Diabetes: No - Renal History Hx Renal Disorders: No - Liver History Hx Hepatic Disorders: No - Neurological & Psychiatric Hx Hx Neurological and Psychiatric Disorders: Yes Neurological / Psychiatric History Comment: BIPOLAR. NEUROPATHY RIGHT FOOT - Cancer History Hx Cancer: No - Congenital Disorder History Hx Congenital Disorders: No - GI History Hx Gastrointestinal Disorders: No Gastrointestinal History Comment: CONSTIPATION - Other Health History Other Health History: LE DVT 2015. RT FOOT NEUROPATHY/NUMBNESS. DDD CERVICAL/ LUMBAR. OSTEOARTHRITIS - Chronic Pain History Chronic Pain: Yes (DDD,RT KNEE) - Surgical History Prior Surgeries: RIGHT TKA 2017 ANE Review of Systems Review of Systems: - Exercise capacity METS (RN): 4 METS ANE Patient History - Allergies Allergies/Adverse Reactions: bee stings Allergy (Mild, Uncoded 10/04/18 17:08) localized reaction - Home Medications Home medications: home medication list seen and reviewed Home Medications: Atorvastatin Calcium [Lipitor 40 mg (*)] 40 mg PO HS 07/28/16 [Last Taken ] Gabapentin [Neurontin 300 MG (*)] 900 mg PO BID@07/28/16 [Last Taken 10/18 05:00] Magnesium Oxide [Magnesium Oxide 400 mg (*)] 400 mg PO HS 07/28/16 [Last Taken 10/17/18] Multivitamins [Multivitamin (*)] 1 each PO DAILY@07/28/16 [Last Taken ] lamoTRIgine [LamICTAL 100 MG (*)] 300 mg PO DAILY 07/28/16 [Last Taken 10/18/18 05:00] Gabapentin [Neurontin 300 MG (*)] 600 mg PO DAILY@02/11/18 [Last Taken ] [place] Carbonate [[place] Carbonate Tab 300 mg (*)] 1,200 mg PO DAILY 02/11/18 [Last Taken 10/17/18] QUEtiapine FUMARATE [Seroquel 300mg (*)] 300 mg PO HS 02/11/18 [Last Taken 10/17] Herbals/Supplements -Info Only 1 ea PO DAILY 09/27/18 [Last Taken 10/13/18] Lexapro 10/04/18 [Last Taken 10/18/18 05:00] - NPO status NPO Status: no food or drink >8 hours NPO Since - Liquids (Date): 10/18/18 NPO Since - Liquids (Time): 04:00 NPO Since - Solids (Date): 10/17/18 NPO Since - Solids (Time): 19:00 - Smoking Hx Smoking Status: Former smoker - Family Anes Hx Family Hx Anesthesia Complications: NONE ANE Labs/Vital Signs - Labs - CBC Platelet Count: 258 - Vital Signs Vital Signs: reviewed preoperatively; see RN documention for details Blood Pressure: 115/85 Heart Rate: 60 Respiratory Rate: 16 O2 Sat (%): 92 Height: 177.8 cm Weight: 63.503 kg ANE Physical Exam - Airway Neck exam: FROM Mallampati Score: Class 3 - ASA Status ASA Status: II ANE Anesthesia Plan Anesthesia Plan: spinal Regional Anesthesia: adductor canal FNB
[2018-10-18] MEDS ORDERED: BUPIVACAINE/DEXTROSE 7.5MG/ML 2 ML SPINAL AMP SP ONE (07:06)
[2018-10-18] MEDS ORDERED: TRANEXAMIC ACID 3,000 MG/50 ML BAG IRR ONE (07:37)
[2018-10-18] MEDS ORDERED: HYDROmorphONE/DILAUDID 2 MG/ML INJ ONE (07:57)
[2018-10-18] MEDS ORDERED: fentaNYL 100 MCG/2 ML INJ ONE ×2 (07:57→11:40)
[2018-10-18] MEDS ORDERED: ROCURONIUM 50 MG/5 ML VIAL ONE ×3 (08:15→08:30)
[2018-10-18] MEDS ORDERED: ONDANSETRON 4 MG/2 ML VIAL ONE ×2 (08:29→11:39)
[2018-10-18] MEDS ORDERED: DEXAMETHASONE 4 MG/ML VIAL ONE (08:29)
[2018-10-18] MEDS ORDERED: ePHEDrine SULFATE 25 MG/5 ML SYR ONE (09:04)
[2018-10-18] MEDS ORDERED: PHENYLEPHRINE HCL 100 MCG/ML SYR ONE (09:04)
[2018-10-18] MEDS ORDERED: ROPIVACAINE HCL 150 MG/30 ML INJ ONE (09:25)
[2018-10-18] MEDS ORDERED: LIDOCAINE 2% 5 ML SDV ONE (09:27)
[2018-10-18] MEDS ORDERED: SUGAMMADEX SODIUM 200 MG/2 ML VIAL IVP ONE (09:29)
[2018-10-18] MEDS ORDERED: fentaNYL 100 MCG/2 ML INJ IVP PRN (09:40)
[2018-10-18] MEDS ORDERED: HYDROmorphONE/DILAUDID 2 MG/ML INJ IVP PRN (09:40)
[2018-10-18] MEDS ORDERED: MEPERIDINE 25 MG/0.5 ML AMP IVP PRN (09:40)
[2018-10-18] MEDS ORDERED: NALOXONE HCL 0.4 MG/ML INJ IVP PRN (09:40)
[2018-10-18] MEDS ORDERED: ALBUTEROL 3 ML DEYVIAL IH PRN (09:40)
[2018-10-18] MEDS ORDERED: ONDANSETRON 4 MG/2 ML VIAL IVP PRN (09:40)
[2018-10-18] MEDS ORDERED: LR 500 ML IV PRN (09:40)
[2018-10-18] MEDS ORDERED: DIAZEPAM 5 MG/ML 1 ML SYR IVP PRN (09:40)
[2018-10-18] MEDS ORDERED: PROMETHAZINE HCL 25 MG/ML INJ IVP PRN ×2 (09:40→10:30)
[2018-10-18] MEDS ORDERED: NALOXONE HCL 0.4 MG/ML INJ ONE ×2 (10:25→12:31)
[2018-10-18] MEDS ORDERED: MAGNESIUM HYDROXIDE 30 ML UDCUP PO PRN (10:30)
[2018-10-18] MEDS ORDERED: diphenhydrAMINE 25 MG CAP PO PRN (10:30)
[2018-10-18] MEDS ORDERED: LACTULOSE 20 GM/30 ML UDCUP PO PRN (10:30)
[2018-10-18] MEDS ORDERED: BISACODYL 10 MG SUPP PR PRN (10:30)
[2018-10-18] MEDS ORDERED: PROMETHAZINE HCL 25 MG SUPPR PR PRN (10:30)
[2018-10-18] MEDS ORDERED: CYCLOBENZAPRINE 10 MG TAB PO PRN (10:30)
[2018-10-18] MEDS ORDERED: DIPHENOXYLATE/ATROPINE LOMOTIL 1 TAB PO PRN (10:30)
[2018-10-18] MEDS ORDERED: POLYETHYLENE GLYCOL 3350 17 GM PKT PO PRN (10:30)
--- NOTE | 2018-10-18 10:39 | POSTOPPROG ---
Post Op Note Date of Operation: 10/18/18 Surgeon: Enid Belcher Vacuum Closing Machine Operator: Concepcion Del Cid PA-C Anesthesiologist: Dr. Aurea Pfeiffer Anesthesia: GET(General Endotracheal) Pre-op Diagnosis: left knee osteoarthritis Post-op Diagnosis: left knee osteoarthritis Indication: left knee pain Procedure: left TKA Inf/Abcess present in the surg proc area at time of surgery?: No EBL: 50-100 Complications: none
--- NOTE | 2018-10-18 10:56 | PDMN ---
Medical Necessity Medical necessity: [facility] S700 Knee Arthroplasty, Total, A-2 days: 63 yo s/p L TKA w/ cement. IP status for hx of PE/DVT, neuropathy R foot, bipolar d/o, DDD cervical/lumbar, osteoarthritis, R TKA 2017.
--- NOTE | 2018-10-18 10:59 | SOAPPROG ---
SOAP Progress Note Assessment/Plan: Assessment/Plan: 63y/o male s/p left TKA - waking from anesthesia, VSS - post-op xrays pending - awaiting pharmacy reconciliation of all home medications - PT/OT - active care system and ASA - suspect patient will require rehab; meets requirements for inpatient status; has severe psychiatric condition including depression and lives alone, has difficulty with adequate response to pain medication as well - call with issues or concerns 10/18/18 10:54 Objective: Vital Signs Temp Pulse Resp BP Pulse Ox 37.0 C 60 16 115/85 H 92 10/18/18 06:20 10/18/18 07:00 10/18/18 07:00 10/18/18 07:00 10/18/18 07:00 opens eyes briefly, VSS, still waking from anesthesia responds to commands, wiggles toes incision clean, dressed ICD10 Worksheet Patient Problems: Problems Problem Status Onset Altered mental status Acute Attempted suicide Acute Diplopia Acute Overdose Acute Suicidal ideation Acute
--- NOTE | 2018-10-18 12:23 | POSTANESTH ---
Post Anesthetic Evaluation Cardiovascular Status: Normal, Stable Respiratory Status: Normal, Stable Level of Consciousness/Mental Status: Mildly Sleepy, Arousable, Moderately Sleepy Pain Control: Adequate, Prn Tx Ordered Nausea/Vomiting Control: Adequate, Prn Tx Ordered Complications Possibly Related to Anesthesia: None Noted
--- NOTE | 2018-10-18 13:07 | GOP ---
[f rep st] OPERATIVE REPORT DATE OF OPERATION: 10/18/2018 SURGEON: Enid Belcher MD CRIMINAL DEFENSE ATTORNEY: Concepcion Del Cid, MOMO ANESTHESIA: General with adductor canal block. PREOPERATIVE DIAGNOSIS: Severe osteoarthritis, left knee. POSTOPERATIVE DIAGNOSIS: Severe osteoarthritis, left knee. PROCEDURE PERFORMED: Left total knee arthroplasty. FINDINGS: Preoperative x-rays of the patient's left knee demonstrated severe osteoarthritis most pro nounced in the medial and patellofemoral compartments. At the time of surgery this finding was confi rmed. There was complete loss of the articular cartilage in the medial compartment and moderate loss in the patellofemoral joint. At the time of surgery, a cemented [employer] II total k nee arthroplasty was performed. The posterior stabilized femoral component was implanted. Size 6 fe moral component was utilized. A size 5 tibial base plate was also cemented into place. A 10 mm cros s-linked polyethylene insert was placed in the metal backing of the tibia. A 38 mm round patellar co mponent was also cemented into place. Following implantation of the components, the knee was taken t [facility] range of motion and was noted to be stable in extension and 30 degrees of flexion. The patien t achieved full extension and 135 degrees of flexion on the table. ESTIMATED BLOOD LOSS: Less than 100 cc. DESCRIPTION OF PROCEDURE: The patient was taken the operating room, placed in a supine position on t he operating table. Following induction of adequate general inhalation anesthesia, the leg was prepp ed and draped in the usual sterile manner. The patient received 2 g of IV Ancef. The leg was elevat ed and exsanguinated and the tourniquet inflated to 275 mmHg. A midline incision was made extending from 2 fingerbreadths above the superior pole of patella distal ly to the tibial tubercle. Incision was carried down through the subcutaneous tissue to the retinacu lum of the knee. The DeMayo leg jones was used throughout the procedure for positioning. A medial parapatellar arthrotomy was performed. The patella was everted laterally and the thickness of the pa tella was measured. A 9 mm cut was taken from the back of the patella. The patella was then sized a nd a metal plate was placed on the cut surface to protect it. It was placed in the lateral gutter. The knee was flexed up and the distal femoral drill hole was made. The distal femoral cutting block was positioned and pinned, and the +2 cut was taken from the distal femur. The cutting jig was taken off, and then using the 9 mm thick lollipop spacer, the tibia was marked for the thickness of the ti bial cut. The knee was then flexed up and the femur was sized. A size 6 femoral component was chose n as the best fit. The size 6 cutting block was placed on the distal femur and the anterior, posteri or, and chamfer cuts were made. The notch was then cleared with the reamer, followed by the osteotom e. A trial reduction was performed with a size 6 femoral component. An excellent fit was noted. Our attention was then turned to the tibia. The tibia was retracted anteriorly with a posterior retr actor and again intramedullary referencing was utilized for the tibial cutting block. The cutting bl ock was positioned as determined by the lollipop spacer and pinned. The varus-valgus alignment was p ositioned anatomically. The tibia was then cut. The tibia was sized. A size 5 tibial component was chosen. It was pinned into place, and then, the femoral component was placed on the distal femur. A 9 mm thick polyethylene was inserted and the knee was taken through range of motion. An excellent fit was noted with the components. The 10 mm polyethylene was also trialed and this was the best fit . The keel punch was utilized prior to removing the tibial component. The patella was also prepared . It was drilled and sized. All of the bony surfaces were then irrigated and dried. Tranexamic acid was placed on the cut bony s urfaces for hemostasis. The posterior capsule was injected with joint cocktail. The remnant of the medial and lateral meniscus was removed. The components were then cemented into place the tibia firs t, followed by the femur in the patella. Excess cement was removed from around the edges of the comp onents using a [place] elevator. The knee was brought into extension and held while the cement hardene d. Once the cement was hard, the trial polyethylene was removed and a 10 mm polyethylene was inserte d. The wound was thoroughly irrigated out and the retinaculum of the knee was closed using FiberWire in a [id number] fashion. The subcutaneous tissues were closed using 2-0 Vicryl and the skin was cl osed using steve. Sterile dressings were applied. The patient tolerated the procedure well. Ther e were no complications. Estimated blood loss minimal. Final sponge, needle counts were correct. T he patient was transported to the recovery room in good condition. /[id number]/MODL
[2018-10-18] MEDS: LR 1,000 ML IV SCH (13:58)
[2018-10-18] MEDS: ceFAZolin 2 GM/DEXTROSE 100 ML IV SCH (15:16)
[2018-10-18] MEDS: ACETAMINOPHEN 325 MG TAB PO SCH ×2 (16:56→20:42)
[2018-10-18] MEDS: GABAPENTIN 300 MG CAP PO SCH ×2 (16:57→20:43)
[2018-10-18] MEDS: ATORVASTATIN CALCIUM 40 MG TAB PO SCH (20:43)
[2018-10-18] MEDS: SENNOSIDES/DOCUSATE SODIUM TAB PO SCH (20:44)
[2018-10-18] MEDS: QUEtiapine FUMARATE 300 MG TAB PO SCH (20:44)
[2018-10-18] MEDS: MAGNESIUM OXIDE 400 MG TAB PO SCH (20:44)
[2018-10-18] MEDS: oxyCODONE IR 5 MG TAB PO PRN (20:51)
[2018-10-19] MEDS: ACETAMINOPHEN 325 MG TAB PO SCH ×4 (00:17→18:02)
[2018-10-19] MEDS: ceFAZolin 2 GM/DEXTROSE 100 ML IV SCH (00:18)
[2018-10-19] MEDS ORDERED: NS 500 ML IV ONE (01:00)
[2018-10-19] MEDS: LR 1,000 ML IV SCH (02:47)
[2018-10-19] MEDS: LITHIUM CARBONATE 300 MG TAB PO SCH (07:58)
[2018-10-19] MEDS: SENNOSIDES/DOCUSATE SODIUM TAB PO SCH ×2 (08:01→21:53)
[2018-10-19] MEDS: ASPIRIN 325 MG TAB PO SCH (08:02)
[2018-10-19] MEDS: ESCITALOPRAM OXALATE 10 MG TAB PO SCH (08:02)
[2018-10-19] MEDS: lamoTRIgine 100 MG TAB PO SCH (08:02)
[2018-10-19] MEDS: oxyCODONE IR 5 MG TAB PO PRN ×5 (08:03→21:53)
[2018-10-19] MEDS: FERROUS SULFATE 325 MG TAB PO SCH ×2 (08:03→18:02)
[2018-10-19] MEDS: GABAPENTIN 300 MG CAP PO SCH ×3 (08:04→21:52)
--- NOTE | 2018-10-19 14:18 | ASMTCMCOM ---
CM Note CM Note Notes: Pt had planned OA of knee. PT rec SNF. Pt amenable to SNF, requesting a referral to [facility] where he went in February 2018. Referral sent in [employer]. CM to follow. D/c plan of care: SNF Date Signed: 10/19/2018 02:17 PM Electronically Signed By:MARTY Byrne
--- NOTE | 2018-10-19 14:36 | SOAPPROG ---
SOAP Progress Note Assessment/Plan: Assessment/Plan: 63y/o male s/p left TKA POD#1 - stable and doing well, denies depression currently - post-op xrays stable - PT/OT - active care system and ASA - suspect patient will require rehab; meets requirements for inpatient status; has severe psychiatric condition including depression and lives alone, has difficulty with adequate response to pain medication as well - call with issues or concerns 10/18/18 10:54 10/19/18 14:35 Subjective: Having significant pain, doesn't feel as though medication is helping significantly. Eating, drinking, voiding, ambulating. Objective: Vital Signs Temp Pulse Resp BP Pulse Ox 36.6 C 73 16 121/80 H 90 L 10/19/18 11:16 10/19/18 11:16 10/19/18 11:16 10/19/18 11:16 10/19/18 11:16 Laboratory Results 10/19/18 04:42 10/18/18 10/19/18 10/20/18 05:59 05:59 05:59 Intake Total 4450 Output Total 10 800 Balance 4440 -800 NAD, no distress EOMi, face symmetric left knee lacking 5 degrees of extension, flexion 60 incision CDI, no erythema or active drainage dressing changed in sterile fashion ICD10 Worksheet Patient Problems: Problems Problem Status Onset Altered mental status Acute Attempted suicide Acute Diplopia Acute Overdose Acute Suicidal ideation Acute
[2018-10-19] MEDS: ATORVASTATIN CALCIUM 40 MG TAB PO SCH (21:52)
[2018-10-19] MEDS: MAGNESIUM OXIDE 400 MG TAB PO SCH (21:52)
[2018-10-19] MEDS: QUEtiapine FUMARATE 300 MG TAB PO SCH (21:53)
[2018-10-20] MEDS: ACETAMINOPHEN 325 MG TAB PO SCH ×5 (00:25→22:46)
[2018-10-20] MEDS: oxyCODONE IR 5 MG TAB PO PRN ×2 (05:37→22:46)
[2018-10-20] MEDS: lamoTRIgine 100 MG TAB PO SCH (08:25)
[2018-10-20] MEDS: ASPIRIN 325 MG TAB PO SCH (08:25)
[2018-10-20] MEDS: SENNOSIDES/DOCUSATE SODIUM TAB PO SCH ×2 (08:25→20:01)
[2018-10-20] MEDS: FERROUS SULFATE 325 MG TAB PO SCH ×2 (08:25→17:51)
[2018-10-20] MEDS: ESCITALOPRAM OXALATE 10 MG TAB PO SCH (08:25)
[2018-10-20] MEDS: GABAPENTIN 300 MG CAP PO SCH ×3 (08:26→19:59)
[2018-10-20] MEDS: LITHIUM CARBONATE 300 MG TAB PO SCH (08:26)
[2018-10-20] MEDS ORDERED: NS 500 ML IV ONE ×2 (08:30→11:00)
--- NOTE | 2018-10-20 12:46 | SOAPPROG ---
SOAP Progress Note Assessment/Plan: Assessment/Plan: 63y/o male s/p left TKA POD#2 - patient opens eyes to voice and is oriented x [address]. [address] Belcher has limited Narcotics and consulted hospitalist for further care - post-op xrays stable - PT/OT - active care system and ASA - will require continued inpatient stay and rehab - call with issues or concerns 10/20/18 12:43 Subjective: No pain, feels confused. Objective: Vital Signs Temp Pulse Resp BP Pulse Ox 37.7 C 84 16 94/66 L 96 10/20/18 07:40 10/20/18 07:40 10/20/18 07:40 10/20/18 12:00 10/20/18 12:00 Laboratory Results 10/20/18 04:45 10/19/18 10/20/18 10/21/18 05:59 05:59 05:59 Intake Total 4450 2000 1250 Output Total 10 0801 1000 Balance 4440 -9438 250 sleepy, opens eyes to voice oriented x 4 EOMi, face symmetric wiggles toes bilaterally sensation intact in LLE dressing with minimal shadowing ICD10 Worksheet Patient Problems: Problems Problem Status Onset Altered mental status Acute Attempted suicide Acute Diplopia Acute Overdose Acute Suicidal ideation Acute
--- NOTE | 2018-10-20 13:11 | PDHOSCONS ---
History and Physical - Chief Complaint Hypotension - History of Present Illness HPI: Hospital medicine team has been asked to consult pt for his persistent hypotension by orthopedics. This is a 63 y/o male with hx of bipolar, depression, peripheral neuropathy who suffered from degenerative joint disease for bilateral knees. He had a right total knee arthroplasty in February 2018 and 2 days ago on 10/18/18 had a left total knee arthroplasty. For the pt, pain has been an issue post-operatively rating it a constant 7/10 and is described as dull and achy. History Information - Allergies/Home Medication List Allergies/Adverse Reactions: bee stings Allergy (Mild, Uncoded 10/04/18 17:08) localized reaction Home Medications: Atorvastatin Calcium [Lipitor 40 mg (*)] 40 mg PO HS 07/28/16 [Last Taken ] Gabapentin [Neurontin 300 MG (*)] 900 mg PO BID@07/28/16 [Last Taken 10/18 05:00] Magnesium Oxide [Magnesium Oxide 400 mg (*)] 400 mg PO HS 07/28/16 [Last Taken 10/17/18] Multivitamins [Multivitamin (*)] 1 each PO DAILY@07/28/16 [Last Taken ] lamoTRIgine [LamICTAL 100 MG (*)] 300 mg PO DAILY 07/28/16 [Last Taken 10/18/18 05:00] Gabapentin [Neurontin 300 MG (*)] 600 mg PO DAILY@12 02/11/18 [Last Taken ] [place] Carbonate [[place] Carbonate Tab 300 mg (*)] 1,200 mg PO DAILY 02/11/18 [Last Taken 10/17/18] QUEtiapine FUMARATE [Seroquel 300mg (*)] 300 mg PO HS 02/11/18 [Last Taken 10/17] Herbals/Supplements -Info Only 1 ea PO DAILY 09/27/18 [Last Taken 10/13/18] Escitalopram Oxalate [Lexapro] 20 mg PO DAILY 10/04/18 [Last Taken 10/18/18 05: 00] I have personally reviewed and updated: family history, medical history, social history, surgical history - Past Medical History Additional medical history: Bipolar disorder, HLD, history of PE, history of peripheral neuropathy in the right lower extremity, degenerative joint disease in the knees, history of suicide attempt. - Surgical History Additional surgical history: Right TKA 02/2018 - Family History Additional family history: Mother with history CAD in her latter 70s. She is . No family history of stroke, seizures, neurologic conditions. - Social History Smoking Status: Former smoker Additional social history: Patient lives in [place]. Cor status-full. Review of Systems Review of Systems: ROS: 10pt was reviewed & negative except for what was stated in HPI & below Physical Exam Physical Exam: Temp Pulse Resp BP Pulse Ox 37.7 C 84 16 94/66 L 96 10/20/18 07:40 10/20/18 07:40 10/20/18 07:40 10/20/18 12:00 10/20/18 12:00 O2 (L/minute) 3 Constitutional: no apparent distress, appears nourished, other (Responds appropriately, easy to arouse, reports not receiving adequate amt of sleep post- op) Eyes: PERRL, anicteric sclera, EOMI Ears, Nose, Mouth, Throat: hearing normal, ears appear normal, no oral mucosal ulcers, dry mucous membranes Cardiovascular: regular rate and rhythym, no murmur, rub, or gallop, No edema Peripheral Pulses: 2+: dorsalis-pedis (R) (Radial 2+), dorsalis-pedis (L) ( Radial 2+) Respiratory: no respiratory distress, no rales or rhonchi, clear to auscultation Gastrointestinal: normoactive bowel sounds, soft, non-tender abdomen, no palpable masses Genitourinary: no bladder fullness, no bladder tenderness Skin: warm, normal color, no rashes or abrasions, no fluctuance, no induration, other (L surgical dressing - C/D/I. Slight serosanguineous drainage.), No mottled Musculoskeletal: pain with ROM (LLE; able to +DF/PF, able to wiggle toes) Neurologic: AAOx3, sensation intact bilaterally, CN II-XII Intact Psychiatric: interacting appropriately, not anxious, not encephalopathic, thought process linear Lymph, Heme, Immunologic: no cervical LAD, no supraclavicular LAD Lab Data & Imaging Review 10/20/18 04:45 Hgb 11.5 g/dL (13.7-17.5) L 10/20/18 04:45 Hct 36.3 % (40.0-51.0) L 10/20/18 04:45 Specimen Hemolysis Cancelled 10/20/18 10:45 [place] Cancelled 10/20/18 10:45 Assessment & Plan Plan: 63 y/o male with hx of bipolar and depression had a L TKA 2 days ago w/ persistent hypotensive state post-op. He is asymptomatic. While assessing pt, I checked his BP supine vs sitting with the following readings: 101/69, 100/72. No change in HR which has been steady 76-80s. He normally does not wear oxygen at home however has been placed on O2 for presumably desaturation while sleeping. I removed his oxygen and he saturated at 93% while sleeping, however while he sat, he saturated between 88-91%. Placed back on 2L NC saturating at 94%. Temp 98.6F. Plan: -CBC/BMP check for any electrolyte imbalances -Received total amount of 1.5 L NS boluses since 1:00am; Cont IVF as he appears to be hypovolemic with dry mucous membrane -Check orthostatic vitals sometime later in the day allowing for the pt to rest in the meantime -He is on multiple medications for his mental disorders. In addition, he has received PRN pain medications. Continue to cautiously use pain medications with consideration to his BP. Currently, E polar ice care machine on and extremity elevated.
[2018-10-20] MEDS: NS 1,000 ML IV SCH ×2 (13:25→22:47)
--- NOTE | 2018-10-20 16:35 | HOSPPROG ---
Hospitalist Progress Note Assessment/Plan: Pt seen with PUSHER RUNNER, Aurea Nunez. We have been consulted due to hypotension. 63 y/o male with hx of bipolar and depression had a L TKA 2 days ago w/ persistent hypotensive state post-op. He is asymptomatic. Afebrile. No hx of steroid use or adrenal insufficiency. No tachycardia Hgb was checked and has not changed significantly BP appears responding to IVF #Hypotension, unclear etiology. Possibly narcotic mediated -Afebrile, no suspicion of infection -Hgb stable -responding to fluids -no tachycardia or evidence to suggest P.E. -no hx of adrenal insufficiency or recent steroid use reported #Anemia #S/p Knee surgery #Bipolar Plan: Agree with PUSHER RUNNER's H&P Cont with IVF, appears improving. UOP has improved per the nurse Obtain labs cont home meds If BP still soft, will need to investigate further options. No resp symptoms or cp at this time. DVT proph: per Primary Subjective: no symptoms Objective: Vital Signs Temp Pulse Resp BP Pulse Ox 37.3 C 80 17 118/88 H 89 L 10/20/18 15:30 10/20/18 15:30 10/20/18 15:30 10/20/18 15:30 10/20/18 15:30 Laboratory Results 10/20/18 14:25 10/20/18 14:25 10/19/18 10/20/18 10/21/18 05:59 05:59 05:59 Intake Total 4450 2000 1250 Output Total 10 6725 1450 Balance 4440 -4725 -200 - Physical Exam Constitutional: no apparent distress Eyes: PERRL, EOMI Ears, Nose, Mouth, Throat: moist mucous membranes, hearing normal Cardiovascular: regular rate and rhythym, No edema Respiratory: no respiratory distress, no rales or rhonchi, clear to auscultation Gastrointestinal: normoactive bowel sounds, soft, non-tender abdomen Skin: warm Neurologic: AAOx3 Psychiatric: interacting appropriately, not anxious, not encephalopathic Lymph, Heme, Immunologic: No petechiae ICD10 Worksheet Patient Problems: Problems Problem Status Onset Altered mental status Acute Attempted suicide Acute Diplopia Acute Overdose Acute Suicidal ideation Acute
[2018-10-20] MEDS: ATORVASTATIN CALCIUM 40 MG TAB PO SCH (19:59)
[2018-10-20] MEDS: MAGNESIUM OXIDE 400 MG TAB PO SCH (20:00)
[2018-10-20] MEDS: QUEtiapine FUMARATE 300 MG TAB PO SCH (20:00)
[2018-10-21] MEDS: oxyCODONE IR 5 MG TAB PO PRN ×2 (03:57→21:25)
[2018-10-21] MEDS: ACETAMINOPHEN 325 MG TAB PO SCH ×3 (05:33→17:52)
[2018-10-21] MEDS: lamoTRIgine 100 MG TAB PO SCH (09:03)
[2018-10-21] MEDS: GABAPENTIN 300 MG CAP PO SCH ×3 (09:03→21:26)
[2018-10-21] MEDS: SENNOSIDES/DOCUSATE SODIUM TAB PO SCH ×2 (09:03→21:27)
[2018-10-21] MEDS: LITHIUM CARBONATE ER 300 MG TAB PO SCH (09:04)
[2018-10-21] MEDS: ASPIRIN 325 MG TAB PO SCH ×2 (09:04→11:08)
[2018-10-21] MEDS: FERROUS SULFATE 325 MG TAB PO SCH ×2 (09:04→17:53)
[2018-10-21] MEDS: ESCITALOPRAM OXALATE 10 MG TAB PO SCH (09:04)
--- NOTE | 2018-10-21 10:32 | HOSPPROG ---
Hospitalist Progress Note Assessment/Plan: 63 y/o male with hx of bipolar and depression had a L TKA 3 days ago. We were consulted w/ persistent hypotensive state post-op. He is asymptomatic. Afebrile. No hx of steroid use or adrenal insufficiency. No tachycardia Hgb was checked and has not changed significantly BP appears responding to IVF #Hypotension, unclear etiology. Possibly narcotic mediated -Afebrile, no suspicion of infection -Hgb stable -responded to IV fluids. Will do a trial off the fluids today. -no tachycardia or evidence to suggest P.E. -no hx of adrenal insufficiency or recent steroid use reported #Anemia #S/p Knee surgery -post op care per surgery -He reports refusing Aspirin. Would consider Lovenox. #Bipolar DVT proph: per Surgery. Would consider Lovenox. He is refusing Aspirin Would monitor today off IVF. If ok, can d/c tomorrow Subjective: no cp or sob. bp is better. good urine output. still on IVF Objective: Vital Signs Temp Pulse Resp BP Pulse Ox 37.2 C 89 18 102/70 95 10/21/18 07:35 10/21/18 07:35 10/21/18 07:35 10/21/18 07:35 10/21/18 07:35 Laboratory Results 10/20/18 14:25 10/20/18 14:25 10/20/18 10/21/18 10/22/18 05:59 05:59 05:59 Intake Total 199954 Output Total 3432 3350 Balance -4725 60340 - Physical Exam Constitutional: no apparent distress Eyes: PERRL, EOMI Ears, Nose, Mouth, Throat: moist mucous membranes, hearing normal Cardiovascular: regular rate and rhythym, No edema Respiratory: no respiratory distress, no rales or rhonchi, clear to auscultation Gastrointestinal: normoactive bowel sounds, soft, non-tender abdomen Skin: warm Neurologic: AAOx3 Psychiatric: interacting appropriately, not anxious, not encephalopathic Lymph, Heme, Immunologic: No petechiae ICD10 Worksheet Patient Problems: Problems Problem Status Onset Altered mental status Acute Attempted suicide Acute Diplopia Acute Overdose Acute Suicidal ideation Acute
--- NOTE | 2018-10-21 11:09 | ASMTCMCOM ---
CM Note CM Note Notes: Pt not medically ready today, [facility] updated. [facility] Date Signed: 10/21/2018 11:08 AM Electronically Signed By:MARTY Byrne
--- NOTE | 2018-10-21 11:13 | SOAPPROG ---
SOAP Progress Note Assessment/Plan: Assessment/Plan: 63y/o male s/p left TKA POD#3 - no confusion - post-op xrays stable - PT/OT - active care system and ASA; was informed today patient has been refusing ASA, patient states he was not taking because he thought it was an NSAID and would interfere with lithium. educated patient and he will take ASA now - will require continued inpatient stay and rehab - appreciate internal medicine input on hypotension as well as psychiatric condition - call with issues or concerns 10/21/18 11:10 Subjective: Feeling better today. Wants to walk more but has struggled to do so due to pain Objective: Vital Signs Temp Pulse Resp BP Pulse Ox 37.2 C 89 18 102/70 95 10/21/18 07:35 10/21/18 07:35 10/21/18 07:35 10/21/18 07:35 10/21/18 07:35 Laboratory Results 10/20/18 14:25 10/20/18 14:25 10/20/18 10/21/18 10/22/18 05:59 05:59 05:59 Intake Total 1999 Output Total 4573 3162 Balance -4725 92936 NAD, no distress EOMi, face symmetric VSS left knee extension 5, flexion 70 sensation grossly intact dressing with minimal shadowing ICD10 Worksheet Patient Problems: Problems Problem Status Onset Altered mental status Acute Attempted suicide Acute Diplopia Acute Overdose Acute Suicidal ideation Acute
[2018-10-21 11:43] LABS: PLATELET COUNT 213 10^3/uL (150-400)
[2018-10-21] MEDS: ATORVASTATIN CALCIUM 40 MG TAB PO SCH (21:26)
[2018-10-21] MEDS: MAGNESIUM OXIDE 400 MG TAB PO SCH (21:27)
[2018-10-21] MEDS: QUEtiapine FUMARATE 300 MG TAB PO SCH (21:27)
[2018-10-22] MEDS: ACETAMINOPHEN 325 MG TAB PO SCH ×3 (00:28→12:35)
[2018-10-22] MEDS: oxyCODONE IR 5 MG TAB PO PRN ×2 (04:53→12:36)
--- NOTE | 2018-10-22 07:45 | SOAPPROG ---
SOAP Progress Note Assessment/Plan: Assessment/Plan: 63y/o male s/p left TKA POD#4 - no confusion currently - post-op xrays stable - PT/OT - active care system and ASA; no calf tenderness - will require rehab - appreciate internal medicine input on hypotension as well as psychiatric condition - call with issues or concerns, return precautions discussed 10/22/18 07:42 Subjective: Pain well controlled. Feeling less confused. Tremor at baseline Objective: Vital Signs Temp Pulse Resp BP Pulse Ox 36.8 C 77 16 106/79 92 10/22/18 04:00 10/22/18 04:00 10/22/18 04:00 10/22/18 04:00 10/22/18 04:00 Laboratory Results 10/21/18 11:36 10/20/18 14:25 10/21/18 10/22/18 10/23/18 05:59 05:59 05:59 Intake Total 66682 200 Output Total 3350 Balance 75516 200 NAD, well appearing, no distress left lower extremity neurovascularly grossly intact incision clean, dry; new dressing placed lacking 5 degrees of extension, flexion 70 no calf tenderness ICD10 Worksheet Patient Problems: Problems Problem Status Onset Altered mental status Acute Attempted suicide Acute Diplopia Acute Overdose Acute Suicidal ideation Acute
--- NOTE | 2018-10-22 07:50 | PDIAF ---
- Diagnosis Diagnosis: left knee osteoarthritis Code Status: Full Code - Medication Management Discharge Medications: electronically signed and located in the Home Medication List. - Orders Services needed: Registered Nurse, Physical Therapy, Occupational Therapy Isolation Type: None Diet Recommendation: no restrictions on diet Kulwinder Stockings Discontinue Date: continue active care system without kulwinder stockings for 12 days post-op Wound Care Instructions: keep incision clean and dry; cover dressing for showering Sutures/[place] Site: remove at post-op appointment on 11/01 Activity/Weight Bearing Restrictions: WBAT Additional Instructions: - WBAT - keep incision dry, cover for showering - ambulate regularly - continue active care system and ASA for DVT prevention - follow-up on 11/01, sooner with any issues or changes. - Follow Up Care Current Providers and Referrals: Enid Belcher MD [Medical Doctor] - Etta Hanson MD [Primary Care Provider] -
[2018-10-22] MEDS: ESCITALOPRAM OXALATE 10 MG TAB PO SCH (08:48)
[2018-10-22] MEDS: FERROUS SULFATE 325 MG TAB PO SCH (08:48)
[2018-10-22] MEDS: lamoTRIgine 100 MG TAB PO SCH (08:48)
[2018-10-22] MEDS: ASPIRIN 325 MG TAB PO SCH (08:48)
[2018-10-22] MEDS: GABAPENTIN 300 MG CAP PO SCH ×2 (08:49→12:35)
[2018-10-22] MEDS: SENNOSIDES/DOCUSATE SODIUM TAB PO SCH (08:49)
[2018-10-22] MEDS: LITHIUM CARBONATE ER 300 MG TAB PO SCH (08:49)
--- NOTE | 2018-10-22 10:06 | ASMTLACE ---
SANNA Length of stay for Answers: 4-6 days current admission Acuity / Level of Answers: Yes Care: Did the patient have an inpatient admission? Comorbidities - select Answers: Opioid dependence all that apply / Chronic pain Other Notes: Hx of PE # of Emergency department Answers: 1-2 visits in the last 6 months Social determinants Answers: History of substance abuse (ETOH, street drugs, prescription drugs, etc.) Mental health diagnosis (anxiety, depression, pers onality disorders, etc.) Score: 19 Date Signed: 10/22/2018 10:05 AM Electronically Signed By:MARTY Byrne
--- NOTE | 2018-10-22 10:26 | HOSPPROG ---
Hospitalist Progress Note Assessment/Plan: 63 y/o male with hx of bipolar and depression had a L TKA 3 days ago. We were consulted w/ persistent hypotensive state post-op. He is asymptomatic. Afebrile. No hx of steroid use or adrenal insufficiency. No tachycardia Hgb was checked and has not changed significantly, stable BP is stable and responded to IVF #Hypotension, unclear etiology. Possibly narcotic mediated -Afebrile, no suspicion of infection -Hgb stable -responded to IV fluids. stable off IVF -no tachycardia or evidence to suggest P.E. -no hx of adrenal insufficiency or recent steroid use reported #Anemia #S/p Knee surgery -post op care per surgery -He reports refusing Aspirin. Would consider Lovenox. #Bipolar DVT proph: per Surgery. Would consider Lovenox. He is refusing Aspirin Plan: ok to d/c from medical perspective cont home meds Subjective: no cp or sob. BP is stable off IVF Objective: Vital Signs Temp Pulse Resp BP Pulse Ox 36.7 C 78 14 112/85 H 94 10/22/18 07:57 10/22/18 07:57 10/22/18 07:57 10/22/18 07:57 10/22/18 07:57 Laboratory Results 10/21/18 11:36 10/20/18 14:25 10/21/18 10/22/18 10/23/18 05:59 05:59 05:59 Intake Total 26996 200 Output Total 3350 Balance 03456 200 - Physical Exam Constitutional: no apparent distress Eyes: PERRL Ears, Nose, Mouth, Throat: moist mucous membranes, hearing normal, ears appear normal Cardiovascular: regular rate and rhythym, No edema Respiratory: no respiratory distress, no rales or rhonchi, clear to auscultation Gastrointestinal: normoactive bowel sounds, soft, non-tender abdomen Skin: warm Neurologic: AAOx3 Psychiatric: interacting appropriately, not anxious, not encephalopathic Lymph, Heme, Immunologic: No petechiae ICD10 Worksheet Patient Problems: Problems Problem Status Onset Altered mental status Acute Attempted suicide Acute Diplopia Acute Overdose Acute Suicidal ideation Acute
--- NOTE | 2018-10-22 11:14 | ASMTCMCOM ---
CM Note CM Note Notes: Pt medically stable for d/c to [facility], orders sent in [employer]. Evelia with [facility] scheduled wc transport for 1300. RHODA Hernandez to call report. Date Signed: 10/22/2018 11:14 AM Electronically Signed By:MARTY Byrne
[2018-10-22 12:27] VITALS: BP 118/75
--- NOTE | 2018-10-22 14:20 | ASDISCHSUM ---
Discharge Information Plan Status: Medically Cleared to Leave: Discharge Date:10/22/2018 01:17 PM CM D/C Disposition: ADT D/C Disposition:Other Rehab, Not [facility] Projected Discharge Date:10/21/2018 11:00 AM Transportation at D/C: Discharge Delay Reason: Follow-Up Date:10/21/2018 11:00 AM Discharge Slot: Final Diagnosis: Placement Information Referral Type:*Usp/SNF Referral ID:[id number] Provider Name:[facility] Address 1:[address] Address 2: City:[place] Selection Factors: State:[place] Patient Contact Information Contact Name:JARRED Relationship:Friend Address: Work Phone: City: [facility] Phone: [facility] Code: Email: Financial Information Financial Class:Medicare Primary Plan Desc:MEDICARE INPATIENT Primary Plan Number:[id number] Secondary Plan Desc:[facility] Secondary Plan Number:[id number] Assessment Information LACE LACE Length of stay for Answers: 4-6 days current admission Acuity / Level of Answers: Yes Care: Did the patient have an inpatient admission? Comorbidities - select Answers: Opioid dependence all that apply / Chronic pain Other Notes: Hx of # of Emergency department Answers: 1-2 visits in the last 6 months Social determinants Answers: History of substance abuse (ETOH, street drugs, prescription drugs, etc.) Mental health diagnosis (anxiety, depression, pers onality disorders, etc.) Score: 19 Date Signed: 10/22/2018 10:05 AM Electronically Signed By:MARTY Byrne [facility] CM Progress Note CM Note CM Note Notes: Pt had planned OA of knee. PT rec SNF. Pt amenable to [facility], requesting a referral to [facility] where he went in February 2018. Referral sent in [employer] to follow. D/c plan of care: [facility] Date Signed: 10/19/2018 02:17 PM Electronically Signed By:MARTY Byrne [facility] CM Progress Note CM Note CM Note Notes: Pt not medically ready today, [facility] updated. D/c plan of care remains [facility] Date Signed: 10/21/2018 11:08 AM Electronically Signed By:MARTY Byrne [facility] CM Progress Note CM Note CM Note Notes: Pt medically stable for d/c to [facility], orders sent in [employer]. Evelia with [facility] scheduled wc transport for 1300. RHODA Hernandez to call report. Date Signed: 10/22/2018 11:14 AM Electronically Signed By:MARTY Byrne Intervention Information Intervention Type:*Incorrect Registration Date of Service:10/18/2018 10:49 AM Patient Type:Observation Staff Member:Chrissie Moses Hours: Discipline: Severity: Comment: Intervention Type:*IM-Signed Date of Service:10/22/2018 10:19 AM Patient Type:Inpatient Staff Member:Deysi Wise Hours: Discipline: Severity: Comment:
--- NOTE | 2018-10-25 12:25 | GDS ---
[f rep st] DISCHARGE SUMMARY ADMISSION DIAGNOSES: Left knee osteoarthritis, severe chronic depression. HOSPITAL COURSE: The patient is a pleasant 63-year-old gentleman who is well known to our service fo r ongoing knee pain. He had history of successful right knee total arthroplasty in the recent past. After careful decision-making and discussion, he elected to proceed forth with left knee total arthr oplasty. He tolerated the procedure well without complication and was transferred to the PACU. Afte r PACU criteria was met, he was transferred to the floor. There, he worked with Physical Therapy and Occupational Therapy and continued to progress. He had some issues with confusion and mild sedation , thought to be related to his psychiatric medications as well as combination with narcotics. The in ternal medicine service was consulted and narcotic dosages were adjusted. He continued to improve fo llowing these adjustments. His hypotension improved and hemoglobin and hematocrit remained stable. He was continued on his medications for psychiatric conditions including depression and bipolar. He initially refused aspirin; however, after discussion of the risks and benefits of the medication, he elected to proceed forth. He continued on [employer] system for DVT prevention as well. On October 22, 2018, he was in good and stable condition and ready for discharge to rehab facility. All of his questions were answered prior to discharge to rehab. He was given strict instruction to foll ow up with our office or call with any issues or concerns. /[id number]/MODL
== END 2018-10-22 13:17 | DRG 470 ==
LOC: F3N 10-18 05:55 → OBSVTOIN 10-18 10:36 → F3N 10-18 13:37
PROVIDERS: ADMIT Orthopaedic Surgery; ATTEND Orthopaedic Surgery
PROC: 0SRD0J9 Replacement of Left Knee Joint with Synthetic Substitute, Cemented, Open Approach (ICD-10-PCS; principal; 2018-10-18 07:15)
DX: M17.12 Unilateral primary osteoarthritis, left knee (principal); I95.81 Postprocedural hypotension; R41.0 Disorientation, unspecified; T40.605A Adverse effect of unspecified narcotics, initial encounter; F31.9 Bipolar disorder, unspecified; D64.9 Anemia, unspecified; G62.9 Polyneuropathy, unspecified; E78.5 Hyperlipidemia, unspecified; Z96.651 Presence of right artificial knee joint; Z86.711 Personal history of pulmonary embolism; Z86.718 Personal history of other venous thrombosis and embolism; Z87.891 Personal history of nicotine dependence
CPT/HCPCS: 97110-GP; 97116-GP; 97161-GP; 97165-GO; 97530-GO; 97535-GO; C1713; J0171; J0690; J1100; J1170; J1885; J2250; J2310; J2370; J2405; J2704; J2795; J3010